=== PATIENT | male | born 1945 | race Caucasian/White ===

== ENCOUNTER 2018-06-11 21:12 | Emergency (ER) | payer OTHER, MEDICARE ==
[2018-06-11 21:48] VITALS: BP 124/69
--- NOTE | 2018-06-11 22:03 | EDM.PDOC ---
ED HPI GENERAL MEDICAL PROBLEM - General Chief Complaint: Gastrointestinal Problem Stated Complaint: VOMITING BLOOD Time Seen by Provider: 06/11/18 21:45 Source of Information: Reports: Patient, Family History Limitations: Reports: No Limitations - History of Present Illness INITIAL COMMENTS - FREE TEXT/NARRATIVE: This patient presents to the ED for evaluation of bleeding. He states he felt like he had a piece of food caught in his throat and coughed up a blood clot approximately the size of a quarter with some additional rashad blood. He had no nausea or vomiting with this. He has had no other episodes. He is currently taking ASA and Plavix and has recently been using naproxen daily since his right knee was replaced 2 months ago. He denies any blood in his stools, bleeding from his gums, other concerns or complaints. Onset: Today Onset Date: 06/11/18 Onset Time: 20:00 Improves with: Reports: None Worsens with: Reports: None Associated Symptoms: Reports: No Other Symptoms. Denies: Chest Pain - Related Data Allergies Allergy/AdvReac Type Severity Reaction Status Date / Time Sulfa (Sulfonamide Allergy Rash Verified 06/11/18 21:42 Antibiotics) zolpidem tartrate Allergy Change Verified 06/11/18 21:42 [From Melonieien] Mental Status Home Meds: Home Meds Acetaminophen/Codeine [Tylenol with Codeine No.3 300MG/30MG] 300 mg PO ASDIRECTED PRN 12/19/13 [History] Aspirin [Thom Chewable Aspirin] 81 mg CHEW DAILY 12/19/13 [History] Metoprolol Succinate 12.5 mg PO BEDTIME 12/19/13 [History] Multivitamin [Multivitamins] 1 tab PO DAILY 12/19/13 [History] [place]-3 Fatty Acids [Fish Oil] 1,000 mg PO BID 12/19/13 [History] Pantoprazole [Protonix] 40 mg PO BIDMEALS 12/19/13 [History] Sertraline [Zoloft] 150 mg PO DAILY 12/19/13 [History] Sucralfate [Carafate] 1 gm PO QIDACANDBED 12/19/13 [History] amLODIPine [Norvasc] 5 mg PO BEDTIME 12/19/13 [History] traZODone 100 mg PO BEDTIME PRN 12/19/13 [History] Cholecalciferol (Vitamin D3) [Vitamin D-3] 2,000 unit PO DAILY 12/20/14 [History ] Cyclobenzaprine [Flexeril] 10 mg PO BID PRN 12/20/14 [History] Hydrochlorothiazide 12.5 mg PO DAILY 12/20/14 [History] Isosorbide Mononitrate [Isosorbide Mononitrate ER] 15 mg PO DAILY 12/20/14 [ History] Memantine HCl [Namenda] 5 mg PO BID 12/20/14 [History] Nitroglycerin [Nitrostat] 0.4 mg SL ASDIRECTED PRN 12/20/14 [History] Vitamin E 100 units PO DAILY 12/20/14 [History] atorvaSTATin Calcium [Atorvastatin Calcium] 80 mg PO QPM 12/20/14 [History] Past Medical History HEENT History: Reports: Cataract, Hard of Hearing, Other (See Below) Other HEENT History: left ear pain inside, hx cararact surgery Cardiovascular History: Reports: Angina, CAD, PTCA, Stents Respiratory History: Reports: Pulmonary Fibrosis Other Respiratory History: asbestos lungs - scraped/removed fluid Gastrointestinal History: Reports: Pancreatitis Musculoskeletal History: Reports: Other (See Below) Other Musculoskeletal History: neck/back/knee/hip pain Psychiatric History: Reports: Depression - Infectious Disease History Infectious Disease History: Reports: Chicken Pox, Measles, Mumps, Rubella, Other (See Below) Other Infectious Disease History: encephalitis - Past Surgical History HEENT Surgical History: Reports: Cataract Surgery Social & Family History - Family History Cardiac: Reports: CAD, [place] Endocrine/Metabolic: Reports: Diabetes, type II Oncologic: Reports: Lymphoma ED ROS GENERAL - Review of Systems Review Of Systems: See Below Constitutional: Denies: Weakness, Fatigue HEENT: Denies: Nosebleed Respiratory: Denies: Hemoptysis Cardiovascular: Denies: Lightheadedness, Palpitations, Syncope GI/Abdominal: Denies: Abdominal Pain, Anorexia, Black Stool, Bloody Stool, Diarrhea, Decreased Appetite : Reports: Pain (epigastric). Denies: Hematuria Musculoskeletal: Reports: No Symptoms Skin: Reports: No Symptoms Neurological: Reports: No Symptoms Psychiatric: Reports: No Symptoms Hematologic/Lymphatic: Denies: Easy Bleeding, Easy Bruising ED EXAM, GI/ABD - Physical Exam Exam: See Below Exam Limited By: No Limitations General Appearance: Alert, WD/WN, No Apparent Distress Eyes: Bilateral: Normal Appearance Ears: Normal External Exam Nose: Normal Inspection Throat/Mouth: Normal Inspection, Normal Gums, Normal Oropharynx, Normal Voice, No Airway Compromise, Other (no active bleeding noted; no evidence of blood in mouth). No: Dysphagia Neck: Normal Inspection, Supple, Non-Tender, Full Range of Motion Respiratory/Chest: No Respiratory Distress, Normal Breath Sounds Cardiovascular: Regular Rate, Rhythm GI/Abdominal Exam: Soft, Non-Tender, No Organomegaly Extremities: Normal Inspection, Normal Range of Motion Neurological: Alert, Oriented Psychiatric: Normal Affect, Normal Mood Skin Exam: Warm, Dry, Intact Course - Vital Signs Last Recorded V/S: Last Vital Signs Temp 36.3 C 06/11/18 21:30 Pulse 81 06/11/18 21:30 Resp 18 06/11/18 21:30 BP 124/69 06/11/18 21:30 Pulse Ox 94 L 06/11/18 21:30 - Re-Assessments/Exams Free Text/Narrative Re-Assessment/Exam: 06/11/18 22:37 This patient presents with blood in the sputum. Differential Diagnosis considered included esophageal varices or bleeding, ulcerative process, GI bleed , etc. possibly related to medications and recents use of NSAIDs. Signs and symptoms at this time are consistent with hemoptysis. Patient denies pain with the exception of some epigastric discomfort intermittently. Patient is hemodynamically stable in the ED. Plan is home and holding Plavix for the next 2 days, adding prevacid daily, and follow up with PCP in the next week.He was instructed to return to ED if symptoms return and/or worsen. Return for fevers greater than 102, increasing pain, or other new symptoms develop. Questions were answered. Departure - Departure Time of Disposition: 22:20 Disposition: Home, Self-Care 01 Condition: Good Clinical Impression: Hemoptysis, Bleeding - Discharge Information *PRESCRIPTION DRUG MONITORING PROGRAM REVIEWED*: Not Applicable *COPY OF PRESCRIPTION DRUG MONITORING REPORT IN PATIENT LAURA: Not Applicable Instructions: Gastrointestinal Bleeding Forms: ED Department Discharge Additional Instructions: Stop Plavix for 2 days. Restart on Thursday. Continue with Omeprazole daily and your regular Protonix. Follow up with primary doctor next week. Avoid NSAIDs. Use Tylenol instead for pain. Talk to your primary doctor about getting a Heliobacter test to check for bleeding or upper endoscopy
== END 2018-06-11 22:00 | disposition home or self-care (01) ==
LOC: LB.ED 21:12
DX: R04.2 Hemoptysis (principal); I25.10 Atherosclerotic heart disease of native coronary artery without angina pectoris; F32.9 Major depressive disorder, single episode, unspecified; Z79.899 Other long term (current) drug therapy; Z79.82 Long term (current) use of aspirin; Z88.2 Allergy status to sulfonamides; Z88.8 Allergy status to other drugs, medicaments and biological substances
CPT/HCPCS: 99282; 99283

== ENCOUNTER 2018-06-13 13:41 | Emergency (ER) | payer OTHER, MEDICARE ==
[2018-06-13 13:54] VITALS: BP 138/81
--- NOTE | 2018-06-13 14:08 | EDM.PDOC ---
ED HPI GENERAL MEDICAL PROBLEM - General Chief Complaint: Gastrointestinal Problem Stated Complaint: bloody stool Time Seen by Provider: 06/13/18 14:00 Source of Information: Reports: Patient, Family History Limitations: Reports: No Limitations - History of Present Illness INITIAL COMMENTS - FREE TEXT/NARRATIVE: This patient presents to the ED for evaluation of bloody stools. He was seen 48 hours ago after one episode of hematemesis and was self-limited. He was instructed to hold his Plavix for 2 days and follow up with this PCP. He states he had a very good day yesterday with no further episodes. Today he woke feeling weak and dizzy and had an episode at home after which he needed assistance getting up from the floor. He states he did not pass out but went to the floor assisted because he was too weak and dizzy to continue. He has had some abdominal pain today and has noted rashad bleeding with stools. On arrival to the ED he is pale, diaphoretic, weak, and hypoxic. Onset: Today Onset Date: 06/13/18 Onset Time: 08:00 Duration: Getting Worse Improves with: Reports: None Worsens with: Reports: Movement Associated Symptoms: Reports: Diaphoresis, Loss of Appetite, Nausea/Vomiting, Shortness of Breath, Weakness - Related Data Allergies Allergy/AdvReac Type Severity Reaction Status Date / Time Sulfa (Sulfonamide Allergy Rash Verified 06/11/18 21:42 Antibiotics) zolpidem tartrate Allergy Change Verified 06/11/18 21:42 [From Haritha] Mental Status Home Meds: Home Meds Acetaminophen/Codeine [Tylenol with Codeine No.3 300MG/30MG] 300 mg PO ASDIRECTED PRN 12/19/13 [History] Aspirin [Thom Chewable Aspirin] 81 mg CHEW DAILY 12/19/13 [History] Metoprolol Succinate 12.5 mg PO BEDTIME 12/19/13 [History] Multivitamin [Multivitamins] 1 tab PO DAILY 12/19/13 [History] [place]-3 Fatty Acids [Fish Oil] 1,000 mg PO BID 12/19/13 [History] Pantoprazole [Protonix] 40 mg PO BIDMEALS 12/19/13 [History] Sertraline [Zoloft] 150 mg PO DAILY 12/19/13 [History] Sucralfate [Carafate] 1 gm PO QIDACANDBED 12/19/13 [History] amLODIPine [Norvasc] 5 mg PO BEDTIME 12/19/13 [History] traZODone 100 mg PO BEDTIME PRN 12/19/13 [History] Cholecalciferol (Vitamin D3) [Vitamin D-3] 2,000 unit PO DAILY 12/20/14 [History ] Cyclobenzaprine [Flexeril] 10 mg PO BID PRN 12/20/14 [History] Hydrochlorothiazide 12.5 mg PO DAILY 12/20/14 [History] Isosorbide Mononitrate [Isosorbide Mononitrate ER] 15 mg PO DAILY 12/20/14 [ History] Memantine HCl [Namenda] 5 mg PO BID 12/20/14 [History] Nitroglycerin [Nitrostat] 0.4 mg SL ASDIRECTED PRN 12/20/14 [History] Vitamin E 100 units PO DAILY 12/20/14 [History] atorvaSTATin Calcium [Atorvastatin Calcium] 80 mg PO QPM 12/20/14 [History] Past Medical History HEENT History: Reports: Cataract, Hard of Hearing, Other (See Below) Other HEENT History: left ear pain inside, hx cararact surgery Cardiovascular History: Reports: Angina, CAD, PTCA, Stents Respiratory History: Reports: Pulmonary Fibrosis Other Respiratory History: asbestos lungs - scraped/removed fluid Gastrointestinal History: Reports: Pancreatitis Musculoskeletal History: Reports: Other (See Below) Other Musculoskeletal History: neck/back/knee/hip pain Psychiatric History: Reports: Depression - Infectious Disease History Infectious Disease History: Reports: Chicken Pox, Measles, Mumps, Rubella, Other (See Below) Other Infectious Disease History: encephalitis - Past Surgical History HEENT Surgical History: Reports: Cataract Surgery Social & Family History - Family History Family Medical History: Noncontributory Cardiac: Reports: CAD, [place] Endocrine/Metabolic: Reports: Diabetes, type II Oncologic: Reports: Lymphoma ED ROS GENERAL - Review of Systems Review Of Systems: See Below Constitutional: Reports: Diaphoresis, Decreased Appetite. Denies: Fever HEENT: Reports: No Symptoms Respiratory: Denies: Shortness of Breath, Hemoptysis Cardiovascular: Reports: Lightheadedness. Denies: Chest Pain, Syncope Endocrine: Reports: No Symptoms GI/Abdominal: Reports: Abdominal Pain, Bloody Stool, Decreased Appetite. Denies : Nausea, Vomiting : Reports: No Symptoms Musculoskeletal: Reports: No Symptoms Skin: Reports: No Symptoms Neurological: Reports: No Symptoms Psychiatric: Reports: No Symptoms ED EXAM, GI/ABD - Physical Exam Exam: See Below Exam Limited By: No Limitations General Appearance: Alert, WD/WN, No Apparent Distress Eyes: Bilateral: Normal Appearance Ears: Normal External Exam Nose: Normal Inspection Throat/Mouth: Normal Inspection Head: Atraumatic, Normocephalic Neck: Normal Inspection, Supple, Non-Tender, Full Range of Motion Respiratory/Chest: No Respiratory Distress, Lungs Clear, Normal Breath Sounds, No Accessory Muscle Use Cardiovascular: Regular Rate, Rhythm GI/Abdominal Exam: Soft, Non-Tender, No Organomegaly, No Distention, Abnormal Bowel Sounds (hypoactive bowel sound). No: Hepatomegaly, Splenomegaly Rectal (Males) Exam: Bloody Stool Extremities: Normal Range of Motion, Non-Tender, No Pedal Edema, Normal Capillary Refill Neurological: Alert, Oriented Psychiatric: Normal Affect, Normal Mood Skin Exam: Warm, Dry Course - Vital Signs Last Recorded V/S: Last Vital Signs Temp 36.7 C 06/13/18 13:44 Pulse 88 06/13/18 13:44 Resp 16 06/13/18 13:44 BP 138/81 06/13/18 13:44 Pulse Ox 100 06/13/18 13:44 - Orders/Labs/Meds Orders: Active Orders 24 hr Category Date Time Status EKG Documentation Completion [RC] ASDIRECTED Care 06/13/18 14:56 Ordered Sodium Chloride 0.9% [Normal Saline] 1,000 ml Med 06/13/18 14:15 Ordered IV ASDIRECTED Sodium Chloride 0.9% [Saline Flush] Med 06/13/18 14:09 Ordered 10 ml FLUSH ASDIRECTED PRN Saline Lock Insert [OM.PC] Stat Oth 06/13/18 14:09 Ordered EKG 12 Lead [EK] Stat Ther 06/13/18 14:55 Ordered Medication Orders Sodium Chloride (Normal Saline) 1,000 mls @ 1,000 mls/hr IV ASDIRECTED CAROLYNN Last Admin: 06/13/18 14:20 Dose: 1,000 mls/hr Sodium Chloride (Saline Flush) 10 ml FLUSH ASDIRECTED PRN PRN Reason: Keep Vein Open Labs: Laboratory Tests 06/13/18 06/13/18 Range/Units 14:15 14:15 WBC 10.4 D (4.0-11.0) K/uL RBC 3.41 L (4.50-6.50) M/uL Hgb 10.4 L D (13.0-18.0) g/dL Hct 31.2 L D (40.0-54.0) % MCV 92 (76-96) fL MCH 30.5 (27.0-32.0) pg MCHC 33.3 (31.0-35.0) g/dL RDW 12.6 (11.0-16.0) % Plt Count 265 D (150-400) K/uL MPV 9.6 (6.0-10.0) fL Neut % (Auto) 77.0 H (45.0-70.0) % Lymph % (Auto) 15.7 L (20.0-40.0) % Rice % (Auto) 6.4 (3.0-10.0) % Eos % (Auto) 0.3 L (1.0-5.0) % Baso % (Auto) 0.6 H (0.0-0.5) % Neut # (Auto) 8.00 H (2.00-7.50) K/uL Lymph # (Auto) 1.63 (1.50-4.00) K/uL Rice # (Auto) 0.67 (0.20-0.80) K/uL Eos # (Auto) 0.03 L (0.04-0.40) K/uL Baso # (Auto) 0.06 (0.02-0.10) K/uL Sodium 139 (136-145) mmol/L Potassium 4.1 (3.5-5.1) mmol/L Chloride 102 (98-107) mmol/L Carbon Dioxide 29.2 (21.0-32.0) mmol/L Anion Gap 11.9 (5.0-15.0) mmol/L BUN 40 H D (8-26) mg/dL Creatinine 0.89 (0.70-1.30) mg/dL Est Cr Clr Drug Dosing 88.51 mL/min Estimated GFR (MDRD) > 60 (>60) MLS/MIN BUN/Creatinine Ratio 44.9 H (6-25) Glucose 127 H D (74-100) mg/dL Calcium 8.1 L (8.5-10.1) mg/dL Total Bilirubin 0.3 D (0.0-1.0) mg/dL AST 16 (15-37) U/L ALT 17 (12-78) U/L Alkaline Phosphatase 91 (46-116) U/L Total Protein 6.4 (6.4-8.2) g/dL Albumin 3.3 L (3.4-5.0) g/dL Globulin 3.1 (2.2-4.2) g/dL Albumin/Globulin Ratio 1.1 (0.8-2.0) Meds: Medications Generic Name Dose Route Start Last Admin Trade Name Freq PRN Reason Stop Dose Admin Sodium Chloride 1,000 mls @ 1,000 mls/hr 06/13/18 14:15 06/13/18 14:20 Normal Saline IV 1,000 mls/hr ASDIRECTED CAROLYNN Administration Sodium Chloride 10 ml 06/13/18 14:09 Saline Flush FLUSH ASDIRECTED PRN Keep Vein Open - Re-Assessments/Exams Free Text/Narrative Re-Assessment/Exam: 06/13/18 15:09 This patient presents for evaluation of bloody stools, dizziness, and weakness. The differential diagnosis of rectal bleeding is broad and includes such etiologies as colitis (inflammatory, infectious, ischemic), GI bleed (upper vs lower), bacterial infection of the large intestine (salmonella, shigella, campylobacter, e coli, etc), diverticular bleed, parasite, amebiasis, hemorrhoid , benign diarrhea with fissure/hemorrhoid, etc. There are no signs of worrisome intra-abdominal pathologies detected during the visit today; however, the patient did present with hypoxia and other symptoms. Because he was symptomatic , a hospital admission is indicated. I contacted [facility] and spoke with Dr. King in the ED who did agree to accept this patient in transfer for definitive diagnosis. Arrangements were made for the patient to be transferred to [place] via EMS. The patient was stable at the time of transfer. Departure - Departure Time of Disposition: 15:30 Disposition: Home, Self-Care 01 Condition: Fair Clinical Impression: Rectal bleeding, Hypoxia - Discharge Information *PRESCRIPTION DRUG MONITORING PROGRAM REVIEWED*: No *COPY OF PRESCRIPTION DRUG MONITORING REPORT IN PATIENT LAURA: No Forms: ED Department Discharge - My Orders Last 24 Hours: My Active Orders 06/13/18 14:09 Sodium Chloride 0.9% [Saline Flush] 10 ml FLUSH ASDIRECTED PRN Saline Lock Insert [OM.PC] Stat 06/13/18 14:15 Sodium Chloride 0.9% [Normal Saline] 1,000 ml IV ASDIRECTED 06/13/18 14:55 EKG 12 Lead [EK] Stat 06/13/18 14:56 EKG Documentation Completion [RC] ASDIRECTED - Assessment/Plan Last 24 Hours: My Active Orders 06/13/18 14:09 Sodium Chloride 0.9% [Saline Flush] 10 ml FLUSH ASDIRECTED PRN Saline Lock Insert [OM.PC] Stat 06/13/18 14:15 Sodium Chloride 0.9% [Normal Saline] 1,000 ml IV ASDIRECTED 06/13/18 14:55 EKG 12 Lead [EK] Stat 06/13/18 14:56 EKG Documentation Completion [RC] ASDIRECTED
[2018-06-13] MEDS ORDERED: Sodium Chloride 0.9% 10 ML Syringe FLUSH PRN (14:09)
[2018-06-13] MEDS ORDERED: Sodium Chloride 0.9% 1,000 ML IV SCH (14:15)
[2018-06-13] MEDS ORDERED: Morphine 10 MG/ML SDV IV ONE (15:11)
== END 2018-06-13 15:36 | disposition home or self-care (01) ==
LOC: LB.ED 13:41
DX: K62.5 Hemorrhage of anus and rectum (principal); R09.02 Hypoxemia; Z88.2 Allergy status to sulfonamides; Z88.8 Allergy status to other drugs, medicaments and biological substances; Z79.899 Other long term (current) drug therapy; Z79.82 Long term (current) use of aspirin; F32.9 Major depressive disorder, single episode, unspecified
CPT/HCPCS: 36415; 80053; 83605; 85025; 93005; 96361; 96374; 99284-25; 99285; A0425; A0429; J2270; J7030

== ENCOUNTER 2019-03-01 12:10 | Inpatient (IN) | payer OTHER, MEDICARE ==
--- NOTE | 2019-03-01 13:02 | EDM.PDOC ---
ED HPI GENERAL MEDICAL PROBLEM - General Chief Complaint: General Stated Complaint: cough Time Seen by Provider: 03/01/19 12:10 Source of Information: Reports: Patient, Family History Limitations: Reports: No Limitations - History of Present Illness INITIAL COMMENTS - FREE TEXT/NARRATIVE: This patient presents to the ED for evaluation of cough. He has been ill for the past week with URI symptoms and was seen for his cough yesterday at an urgent care center. He was given prescriptions for doxycycline and Tessalon. He presents today because the cough is worse and he is needing increased amounts of oxygen. He states he typically only uses oxygen at night but has needed it during the day as well. His appetite is decreased; denies vomiting or diarrhea. Onset: Gradual Onset Date: 02/22/19 Duration: Getting Worse Severity: Moderate Associated Symptoms: Reports: Headaches, Loss of Appetite, Shortness of Breath, Weakness. Denies: Fever/Chills, Nausea/Vomiting - Related Data Allergies Allergy/AdvReac Type Severity Reaction Status Date / Time Sulfa (Sulfonamide Allergy Rash Verified 06/11/18 21:42 Antibiotics) zolpidem tartrate Allergy Change Verified 06/11/18 21:42 [From Haritha] Mental Status Home Meds: Home Meds Acetaminophen/Codeine [Tylenol with Codeine No.3 300MG/30MG] 300 mg PO ASDIRECTED PRN 12/19/13 [History] Aspirin [Thom Chewable Aspirin] 81 mg CHEW DAILY 12/19/13 [History] Metoprolol Succinate 12.5 mg PO BEDTIME 12/19/13 [History] Multivitamin [Multivitamins] 1 tab PO DAILY 12/19/13 [History] [place]-3 Fatty Acids [Fish Oil] 1,000 mg PO BID 12/19/13 [History] Pantoprazole [Protonix] 40 mg PO BIDMEALS 12/19/13 [History] Sertraline [Zoloft] 150 mg PO DAILY 12/19/13 [History] Sucralfate [Carafate] 1 gm PO QIDACANDBED 12/19/13 [History] amLODIPine [Norvasc] 5 mg PO BEDTIME 12/19/13 [History] traZODone 100 mg PO BEDTIME PRN 12/19/13 [History] Cholecalciferol (Vitamin D3) [Vitamin D-3] 2,000 unit PO DAILY 12/20/14 [History ] Cyclobenzaprine [Flexeril] 10 mg PO BID PRN 12/20/14 [History] Hydrochlorothiazide 12.5 mg PO DAILY 12/20/14 [History] Isosorbide Mononitrate [Isosorbide Mononitrate ER] 15 mg PO DAILY 12/20/14 [ History] Memantine HCl [Namenda] 5 mg PO BID 12/20/14 [History] Nitroglycerin [Nitrostat] 0.4 mg SL ASDIRECTED PRN 12/20/14 [History] Vitamin E 100 units PO DAILY 12/20/14 [History] atorvaSTATin Calcium [Atorvastatin Calcium] 80 mg PO QPM 12/20/14 [History] Past Medical History HEENT History: Reports: Cataract, Hard of Hearing, Other (See Below) Other HEENT History: left ear pain inside, hx cararact surgery Cardiovascular History: Reports: Angina, CAD, PTCA, Stents Respiratory History: Reports: Pulmonary Fibrosis Other Respiratory History: asbestos lungs - scraped/removed fluid Gastrointestinal History: Reports: Pancreatitis Musculoskeletal History: Reports: Other (See Below) Other Musculoskeletal History: neck/back/knee/hip pain Psychiatric History: Reports: Depression - Infectious Disease History Infectious Disease History: Reports: Chicken Pox, Measles, Mumps, Rubella, Other (See Below) Other Infectious Disease History: encephalitis - Past Surgical History HEENT Surgical History: Reports: Cataract Surgery Social & Family History - Family History Family Medical History: Noncontributory Cardiac: Reports: CAD, [place] Endocrine/Metabolic: Reports: Diabetes, type II Oncologic: Reports: Lymphoma ED ROS GENERAL - Review of Systems Review Of Systems: See Below Constitutional: Reports: Weakness, Decreased Appetite. Denies: Fever HEENT: Reports: No Symptoms Respiratory: Reports: Shortness of Breath, Wheezing, Cough, Sputum Cardiovascular: Reports: Dyspnea on Exertion, Orthopnea. Denies: Chest Pain GI/Abdominal: Reports: No Symptoms Musculoskeletal: Reports: No Symptoms Skin: Reports: No Symptoms Neurological: Reports: No Symptoms ED EXAM, GENERAL - Physical Exam Exam: See Below Exam Limited By: No Limitations General Appearance: Alert, WD/WN, Moderate Distress Eye Exam: Bilateral Eye: PERRL Ears: Normal External Exam Nose: Normal Inspection Throat/Mouth: Normal Inspection Head: Atraumatic, Normocephalic Neck: Normal Inspection, Supple, Non-Tender, Full Range of Motion Respiratory/Chest: Respiratory Distress, Decreased Breath Sounds, Crackles, Rales, Wheezing, Accessory Muscle Use Cardiovascular: Regular Rate, Rhythm Extremities: Normal Inspection, Normal Range of Motion Neurological: Alert, Oriented Psychiatric: Normal Affect Skin Exam: Warm, Dry, Intact Course - Vital Signs Last Recorded V/S: Last Vital Signs Temp 36.8 C 03/01/19 12:18 Pulse 89 03/01/19 12:18 Resp 18 03/01/19 12:18 BP 156/85 H 03/01/19 12:18 Pulse Ox 96 03/01/19 12:18 - Orders/Labs/Meds Orders: Active Orders 24 hr Category Date Time Status Chest 2V [CR] Stat Exams 03/01/19 12:47 Ordered - Re-Assessments/Exams Free Text/Narrative Re-Assessment/Exam: This patient presents for evaluation of cough. History, physical exam and imaging studies are consistent with pneumonia. The patient is having increased work of breathing and oxygen requirements. For these reasons, he will be admitted to the inpatient unit on observation status for supplemental oxygen and IV antibiotics. 03/01/19 13:05 Departure - Departure Time of Disposition: 13:06 Disposition: Refer to Observation Condition: Fair Clinical Impression: Pneumonia - Discharge Information *PRESCRIPTION DRUG MONITORING PROGRAM REVIEWED*: Not Applicable Referrals: PCP,None [Primary Care Provider] - Sepsis Event Note - Evaluation Sepsis Screening Result: No Definite Risk - Focused Exam Vital Signs: Vital Signs Temp Pulse Resp BP Pulse Ox 03/01/19 12:18 36.8 C 89 18 156/85 H 96 Date Exam was Performed: 03/01/19 Time Exam was Performed: 12:51 - My Orders Last 24 Hours: My Active Orders 03/01/19 12:47 Chest 2V [CR] Stat - Assessment/Plan Last 24 Hours: My Active Orders 03/01/19 12:47 Chest 2V [CR] Stat
[2019-03-01] MEDS ORDERED: Ondansetron 4 MG/2 ML SDV IV PRN (13:07)
[2019-03-01] MEDS ORDERED: Sodium Chloride 0.9% 10 ML Syringe FLUSH PRN (13:10)
--- NOTE | 2019-03-01 13:40 | PCM.HP.2 ---
H&P History of Present Illness - General Date of Service: 03/01/19 Admit Problem/Dx: Admission Diagnosis/Problem Admission Diagnosis/Problem Pneumonia Source of Information: Patient, Family History Limitations: Reports: No Limitations - History of Present Illness Initial Comments - Free Text/Narative: This patient presents to the ED for evaluation of cough. Refer to ED record. Onset of Symptoms: Reports: Gradual Symptom Onset Date: 02/22/19 Duration of Symptoms: Reports: Getting Worse Location: Reports: Chest Severity: Moderate Improves with: Reports: None Worsens with: Reports: Breathing, Movement Associated Symptoms: Reports: Chest Pain, Headaches, Loss of Appetite, Shortness of Breath, Weakness. Denies: Fever/Chills, Nausea/Vomiting - Related Data Allergies/Adverse Reactions: Allergies Allergy/AdvReac Type Severity Reaction Status Date / Time Sulfa (Sulfonamide Allergy Rash Verified 06/11/18 21:42 Antibiotics) zolpidem tartrate Allergy Change Verified 06/11/18 21:42 [From Ambien] Mental Status Home Medications: Home Meds Acetaminophen/Codeine [Tylenol with Codeine No.3 300MG/30MG] 300 mg PO ASDIRECTED PRN 12/19/13 [History] Aspirin [Thom Chewable Aspirin] 81 mg CHEW DAILY 12/19/13 [History] Metoprolol Succinate 12.5 mg PO BEDTIME 12/19/13 [History] Multivitamin [Multivitamins] 1 tab PO DAILY 12/19/13 [History] [place]-3 Fatty Acids [Fish Oil] 1,000 mg PO BID 12/19/13 [History] Pantoprazole [Protonix] 40 mg PO BIDMEALS 12/19/13 [History] Sertraline [Zoloft] 150 mg PO DAILY 12/19/13 [History] Sucralfate [Carafate] 1 gm PO QIDACANDBED 12/19/13 [History] amLODIPine [Norvasc] 5 mg PO BEDTIME 12/19/13 [History] traZODone 100 mg PO BEDTIME PRN 12/19/13 [History] Cholecalciferol (Vitamin D3) [Vitamin D-3] 2,000 unit PO DAILY 12/20/14 [History ] Cyclobenzaprine [Flexeril] 10 mg PO BID PRN 12/20/14 [History] Hydrochlorothiazide 12.5 mg PO DAILY 12/20/14 [History] Isosorbide Mononitrate [Isosorbide Mononitrate ER] 15 mg PO DAILY 12/20/14 [ History] Memantine HCl [Namenda] 5 mg PO BID 12/20/14 [History] Nitroglycerin [Nitrostat] 0.4 mg SL ASDIRECTED PRN 12/20/14 [History] Vitamin E 100 units PO DAILY 12/20/14 [History] atorvaSTATin Calcium [Atorvastatin Calcium] 80 mg PO QPM 12/20/14 [History] Past Medical History HEENT History: Reports: Cataract, Hard of Hearing, Other (See Below) Other HEENT History: left ear pain inside, hx cararact surgery Cardiovascular History: Reports: Angina, CAD, PTCA, Stents Respiratory History: Reports: Pulmonary Fibrosis Other Respiratory History: asbestos lungs - scraped/removed fluid Gastrointestinal History: Reports: Pancreatitis Musculoskeletal History: Reports: Other (See Below) Other Musculoskeletal History: neck/back/knee/hip pain Psychiatric History: Reports: Depression - Infectious Disease History Infectious Disease History: Reports: Chicken Pox, Measles, Mumps, Rubella, Other (See Below) Other Infectious Disease History: encephalitis - Past Surgical History HEENT Surgical History: Reports: Cataract Surgery Social & Family History - Family History Family Medical History: Noncontributory Cardiac: Reports: CAD, [place] Endocrine/Metabolic: Reports: Diabetes, type II Oncologic: Reports: Lymphoma - Tobacco Use Smoking Status *Q: Former Smoker Used Tobacco, but Quit: Yes Month/Year Tobacco Last Used: 1984 Second Hand Smoke Exposure: No - Caffeine Use Caffeine Use: Reports: Coffee, Tea - Recreational Drug Use Recreational Drug Use: No H&P Review of Systems - Review of Systems: Review Of Systems: See Below General: Reports: Weakness, Decreased Appetite. Denies: Fever HEENT: Reports: Headaches, Rhinitis. Denies: Ear Pain, Eye Pain, Sore Throat Pulmonary: Reports: Shortness of Breath, Wheezing, Cough, Sputum Cardiovascular: Reports: Dyspnea on Exertion, Orthopnea. Denies: Chest Pain, Palpitations Gastrointestinal: Reports: Decreased Appetite. Denies: Abdominal Pain, Diarrhea , Nausea, Vomiting Musculoskeletal: Reports: No Symptoms Skin: Reports: No Symptoms Neurological: Reports: No Symptoms Exam - Exam Exam: See Below - Vital Signs Vital Signs: Last Vital Signs Temp 36.8 C 03/01/19 12:18 Pulse 89 12/31/19 12:18 Resp 18 03/01/19 12:18 BP 156/85 H 03/01/19 12:18 Pulse Ox 96 03/01/19 12:18 Weight: 90.083 kg - Exam Quality Assessment: Supplemental Oxygen General: Alert, Oriented, Cooperative, Moderate Distress HEENT: PERRLA, Conjunctiva Clear, EOMI, Hearing Intact, Mucosa Moist & [place], Nares Patent, Normal Nasal Septum, Posterior Pharynx Clear, Pupils Equal, Pupils Reactive, TMs Clear Neck: Supple, Trachea Midline Lungs: Decreased Breath Sounds, Rales, Rhonchi, Wheezing, Other (Breath sounds decreased bilateral bases with intermittent rales and expiratory wheezes) GI/Abdominal Exam: Normal Bowel Sounds, Soft, Non-Tender, No Distention Back Exam: Normal Inspection Extremities: Normal Inspection Skin: Warm, Dry, Intact Neuro Extensive - Mental Status: Alert, Oriented x3, Normal Mood/Affect Sepsis Event Note - Evaluation Sepsis Screening Result: No Definite Risk - Focused Exam Vital Signs: Vital Signs Temp Pulse Resp BP Pulse Ox 03/01/19 12:18 36.8 C 89 18 156/85 H 96 Date Exam was Performed: 03/01/19 Time Exam was Performed: 13:34 - Problem List (1) Pneumonia SNOMED Code(s): 379690350 ICD Code: J18.9 - PNEUMONIA, UNSPECIFIED ORGANISM Status: Acute Priority : Medium Current Visit: Yes Qualifiers: Pneumonia type: due to unspecified organism Laterality: unspecified laterality Lung location: unspecified part of lung Qualified Code(s): J18.9 - Pneumonia, unspecified organism Problem List Initiated/Reviewed/Updated: No Orders Last 24hrs: Active Orders 24 hr Category Date Time Status Patient Status [ADT] Routine ADT 03/01/19 13:07 Active Oxygen Therapy [RC] PRN Care 03/01/19 13:07 Active Pulse Oximetry [RC] CONTINUOUS Care 03/01/19 13:08 Active RT Aerosol Therapy [RC] ASDIRECTED Care 03/01/19 13:09 Active VTE/DVT Education [RC] DAILY Care 03/01/19 13:07 Active Vital Signs [RC] Q4H Care 03/01/19 13:07 Active Chest 2V [CR] Stat Exams 03/01/19 12:47 Taken Acetaminophen [Tylenol] Med 03/01/19 13:07 Active 650 mg PO Q4H PRN Albuterol/Ipratropium [DuoNeb 3.0-0.5 MG/3 ML] Med 03/01/19 13:07 Active 3 ml NEB QID PRN Levofloxacin/Dextrose 5%-Water [Levaquin in D5W 750 MG/ Med 03/01/19 13:45 Ordered 150 ML] 750 mg Premix Bag 1 bag IV Q24H Ondansetron [Zofran] Med 03/01/19 13:07 Active 4 mg IV Q4H PRN Sodium Chloride 0.9% [Saline Flush] Med 03/01/19 13:10 Active 10 ml FLUSH ASDIRECTED PRN Saline Lock Insert [OM.PC] Routine Oth 03/01/19 13:10 Ordered Resuscitation Status Routine Resus Stat 03/01/19 13:07 Ordered Medication Orders Acetaminophen (Tylenol) 650 mg PO Q4H PRN PRN Reason: Pain (Mild 1-3)/fever Albuterol/Ipratropium (Duoneb 3.0-0.5 Mg/3 Ml) 3 ml NEB QID PRN PRN Reason: Shortness Of Breath/wheezing Levofloxacin/Dextrose 750 mg/ (Premix) 150 mls @ 100 mls/hr IV Q24H [facility] Ondansetron HCl (Zofran) 4 mg IV Q4H PRN PRN Reason: Nausea/Vomiting Sodium Chloride (Saline Flush) 10 ml FLUSH ASDIRECTED PRN PRN Reason: Keep Vein Open - Mortality Measure Prognosis:: Good
[2019-03-01] MEDS ORDERED: Levofloxacin/Dextrose 5%-Water 150 ML IV ONE (14:00)
[2019-03-01] MEDS: Acetaminophen 325 MG Tab PO PRN ×2 (14:05→18:38)
[2019-03-01] MEDS: Levofloxacin/Dextrose 5%-Water 750 MG in Premix Bag 1 BAG IV SCH (14:10)
[2019-03-01] MEDS ORDERED: Lidocaine 5% Oint 35.44 GM Tube TOP PRN ×2 (16:50→16:54)
[2019-03-01] MEDS ORDERED: GUAIFENESIN PO PRN (16:54)
[2019-03-01] MEDS ORDERED: Lidocaine 5% 700 MG Patch TOP PRN (16:54)
[2019-03-01] MEDS ORDERED: Nitroglycerin 0.4 MG Tab.SL SL PRN (16:54)
[2019-03-01] MEDS ORDERED: Non-Formulary Medication 1 Each (Melatonin/Pyridoxine Hcl (B6) [Melatonin 3 Mg Tablet] 3 M PO PRN (16:54)
[2019-03-01] MEDS ORDERED: [UNRECOGNIZED DRUG - OTHER] PO PRN (16:54)
[2019-03-01] MEDS ORDERED: CODEINE PHOSPHATE PO PRN (16:54)
[2019-03-01] MEDS ORDERED: Albuterol/Ipratropium 3.0-0.5 MG/3 ML Neb Soln INH PRN (16:54)
[2019-03-01] MEDS ORDERED: traZODone 100 MG Tab PO PRN (16:54)
[2019-03-01] MEDS ORDERED: BENZONATATE 200 MG PO PRN (16:54)
[2019-03-01] MEDS: BENZONATATE 200 MG PO PRN (17:00)
[2019-03-01] MEDS: CODEINE PO PRN ×2 (18:16→22:51)
[2019-03-01] MEDS: GUAIFENESIN PO PRN ×2 (18:16→22:51)
[2019-03-01] MEDS: LORazepam 1 MG Tab PO PRN ×2 (18:39→22:51)
[2019-03-01] MEDS: SUCRALFATE 1 GM PO SCH (19:52)
[2019-03-01] MEDS: FATTY ACIDS PO SCH (19:53)
[2019-03-01] MEDS: OMEGA PO SCH (19:53)
[2019-03-01] MEDS ORDERED: amLODIPine 10 MG Tab PO SCH (20:00)
[2019-03-01] MEDS ORDERED: Sucralfate 1 GM Tab PO SCH (20:00)
[2019-03-01] MEDS ORDERED: atorvaSTATin 80 MG Tab PO SCH (20:00)
[2019-03-01] MEDS ORDERED: Morphine 2 MG/ML Syringe ONE (23:09)
[2019-03-01] MEDS: Nitroglycerin 0.4 MG Tab.SL SL PRN (23:18)
[2019-03-02] MEDS: LORazepam 1 MG Tab PO PRN ×3 (03:12→20:10)
[2019-03-02] MEDS: Nitroglycerin 0.4 MG Tab.SL SL PRN ×2 (03:16→06:39)
[2019-03-02] MEDS: CODEINE PO PRN ×3 (03:17→20:02)
[2019-03-02] MEDS: GUAIFENESIN PO PRN ×3 (03:17→20:02)
[2019-03-02] MEDS ORDERED: Morphine 2 MG/ML Syringe IVPUSH ONE (04:21)
[2019-03-02] MEDS ORDERED: Aspirin 81 MG Tab.Chew CHEW SCH (08:00)
[2019-03-02] MEDS ORDERED: Clopidogrel 75 MG Tab PO SCH (08:00)
[2019-03-02] MEDS ORDERED: Isosorbide Mononitrate 60 MG Tab.ER PO SCH (08:00)
[2019-03-02] MEDS ORDERED: Loratadine 10 MG Tab PO SCH (08:00)
[2019-03-02] MEDS ORDERED: Sertraline 100 MG Tab PO SCH (08:00)
[2019-03-02] MEDS ORDERED: Pantoprazole 40 MG Tab.CR PO SCH (08:00)
[2019-03-02] MEDS ORDERED: Hydrochlorothiazide 25 MG Tab PO SCH (08:00)
[2019-03-02] MEDS ORDERED: Metoprolol Succinate 25 MG Tab.ER PO SCH (08:00)
[2019-03-02] MEDS ORDERED: Memantine 10 MG Tab PO SCH (08:00)
[2019-03-02] MEDS: Acetaminophen 325 MG Tab PO PRN ×3 (08:38→22:54)
[2019-03-02] MEDS: BENZONATATE 200 MG PO PRN ×2 (08:38→16:26)
[2019-03-02] MEDS: SUCRALFATE 1 GM PO SCH ×2 (09:00→20:05)
[2019-03-02] MEDS: Albuterol/Ipratropium 3.0-0.5 MG/3 ML Neb Soln NEB PRN (09:08)
[2019-03-02] MEDS: FATTY ACIDS PO SCH ×2 (12:04→20:08)
[2019-03-02] MEDS: OMEGA PO SCH ×2 (12:04→20:08)
[2019-03-02] MEDS: ISOSORBIDE MONONITRATE 60 MG PO SCH (12:07)
--- NOTE | 2019-03-02 12:13 | PCM.PN ---
- General Info Date of Service: 03/02/19 Admission Dx/Problem (Free Text): Admission Diagnosis/Problem Admission Diagnosis/Problem Pneumonia Subjective Update: Patient sleeping soundly and groggy during exam. Functional Status: Reports: Pain Controlled - Review of Systems General: Reports: Appetite (remains decreased). Denies: Fever HEENT: Reports: Other (had epistaxis during the night) Pulmonary: Reports: Shortness of Breath, Cough, Sputum Cardiovascular: Reports: Dyspnea on Exertion, Orthopnea. Denies: Chest Pain Gastrointestinal: Denies: Abdominal Pain, Diarrhea, Nausea, Vomiting Musculoskeletal: Reports: No Symptoms Skin: Reports: No Symptoms Neurological: Reports: No Symptoms - Patient Data Vitals - Most Recent: Last Vital Signs Temp 37.3 C 03/02/19 08:00 Pulse 96 03/02/19 08:00 Resp 20 03/02/19 08:00 BP 167/101 H 03/02/19 08:00 Pulse Ox 95 03/02/19 08:00 Weight - Most Recent: 90.083 kg Lab Results Last 24 Hours: Laboratory Results - last 24 hr 03/01/19 03/01/19 Range/Units 15:32 16:00 WBC 12.4 H (4.0-11.0) K/uL RBC 4.17 L (4.50-6.50) M/uL Hgb 12.7 L D (13.0-18.0) g/dL Hct 37.9 L D (40.0-54.0) % MCV 91 (76-96) fL MCH 30.5 (27.0-32.0) pg MCHC 33.5 (31.0-35.0) g/dL RDW 13.0 (11.0-16.0) % Plt Count 231 (150-400) K/uL MPV 9.5 (6.0-10.0) fL Neut % (Auto) 80.0 H (45.0-70.0) % Lymph % (Auto) 8.8 L (20.0-40.0) % [place] % (Auto) 10.1 H (3.0-10.0) % Eos % (Auto) 0.8 L (1.0-5.0) % Baso % (Auto) 0.3 (0.0-0.5) % Neut # (Auto) 9.89 H (2.00-7.50) K/uL Lymph # (Auto) 1.09 L (1.50-4.00) K/uL [place] # (Auto) 1.25 H (0.20-0.80) K/uL Eos # (Auto) 0.10 (0.04-0.40) K/uL Baso # (Auto) 0.04 (0.02-0.10) K/uL Sodium 135 L (136-145) mmol/L Potassium 3.0 L D (3.5-5.1) mmol/L Chloride 95 L (98-107) mmol/L Carbon Dioxide 32.2 H (21.0-32.0) mmol/L Anion Gap 10.8 (5.0-15.0) mmol/L BUN 10 D (8-26) mg/dL Creatinine 0.75 (0.70-1.30) mg/dL Est Cr Clr Drug Dosing 103.51 mL/min Estimated GFR (MDRD) > 60 (>60) MLS/MIN BUN/Creatinine Ratio 13.3 (6-25) Glucose 117 H (74-100) mg/dL Calcium 9.0 (8.5-10.1) mg/dL Albert Results Last 24 Hours: Microbiology 03/01/19 15:00 MRSA Surveillance Culture - Final Nares, Left NO MRSA ISOLATED Med Orders - Current: Current Medications Acetaminophen (Tylenol) 650 mg PO Q4H PRN PRN Reason: Pain (Mild 1-3)/fever Last Admin: 03/02/19 08:38 Dose: 650 mg Albuterol/Ipratropium (Duoneb 3.0-0.5 Mg/3 Ml) 3 ml NEB QID PRN PRN Reason: Shortness Of Breath/wheezing Last Admin: 03/02/19 09:08 Dose: 3 ml Amlodipine Besylate (Norvasc) 10 mg PO BEDTIME [facility] Aspirin (Aspirin) 81 mg PO DAILY [facility] Atorvastatin Calcium (Lipitor) 80 mg PO BEDTIME CAROLYNN Last Admin: 03/01/19 19:55 Dose: 80 mg Cholecalciferol (Vitamin D3) 2,000 unit PO DAILY [facility] Clopidogrel Bisulfate (Plavix) 75 mg PO DAILY [facility] Guaifenesin/Codeine Phosphate (Robitussin Ac) 5 ml PO Q4H PRN PRN Reason: Cough Last Admin: 03/02/19 03:17 Dose: 5 ml Hydrochlorothiazide (Hydrochlorothiazide) 12.5 mg PO DAILY [facility] Levofloxacin/Dextrose 750 mg/ (Premix) 150 mls @ 100 mls/hr IV Q24H CAROLYNN Last Admin: 03/01/19 14:10 Dose: 100 mls/hr Isosorbide Mononitrate (Imdur) 60 mg PO DAILY [facility] Last Admin: 03/02/19 12:07 Dose: 60 mg Lidocaine (Lidoderm 5%) 1,400 mg TOP DAILY PRN PRN Reason: Pain Lidocaine HCl (Lidocaine 5%) gm TOP BID PRN PRN Reason: Pain Loratadine (Claritin) 10 mg PO DAILY [facility] Lorazepam (Ativan) 2 mg PO Q4H PRN PRN Reason: Anxiety Last Admin: 03/02/19 08:37 Dose: 2 mg Melatonin (Melatonin) 3 mg PO BEDTIME [facility] Memantine (Namenda) 10 mg PO BID [facility] Metoprolol Succinate (Toprol Xl) 25 mg PO BEDTIME [facility] Non-Formulary Medication (Multivitamin [Multivitamins]) 1 tab PO DAILY [facility] [place]-3 Fatty Acids (Fish Oil) 1,000 Mg Cap Own Med 0 mg PO BID [facility] Last Admin: 03/02/19 12:04 Dose: 1,000 mg Ondansetron HCl (Zofran) 4 mg IV Q4H PRN PRN Reason: Nausea/Vomiting Pantoprazole Sodium (Protonix) 40 mg PO DAILY [facility] Benzonatate 200 Mg (Caps Own Med) 0 each PO Q8H PRN PRN Reason: Cough Last Admin: 03/02/19 08:38 Dose: 200 each Sertraline HCl (Zoloft) 150 mg PO DAILY [facility] Sodium Chloride (Saline Flush) 10 ml FLUSH ASDIRECTED PRN PRN Reason: Keep Vein Open Sucralfate (Carafate) 1 gm PO BID [facility] Last Admin: 03/02/19 09:00 Dose: 1 gm Trazodone HCl (Trazodone) 100 mg PO BEDTIME PRN PRN Reason: Sleep Last Admin: 03/01/19 22:01 Dose: 100 mg Vitamin E (Vitamin E) 100 units PO DAILY [facility] Discontinued Medications Albuterol/Ipratropium (Duoneb 3.0-0.5 Mg/3 Ml) 3 ml INH QID PRN PRN Reason: Dyspnea Aspirin (Aspirin) 81 mg CHEW DAILY [facility] Clopidogrel Bisulfate (Plavix) 75 mg PO DAILY [facility] Hydrochlorothiazide (Hydrochlorothiazide) 12.5 mg PO DAILY [facility] Levofloxacin/Dextrose (Levaquin In D5w 750 Mg/150 Ml) Confirm Administered Dose 150 mls @ as directed IV .[employer]-MED ONE Stop: 03/01/19 14:01 Last Admin: 03/01/19 14:18 Dose: Not Given Lidocaine (Lidoderm 5%) mg TOP DAILY PRN PRN Reason: Pain Lidocaine HCl (Lidocaine 5%) 1 gm TOP ONETIME PRN PRN Reason: Pain Loratadine (Claritin) 10 mg PO DAILY [facility] Memantine (Namenda) 10 mg PO DAILY [facility] Morphine Sulfate (Morphine) Confirm Administered Dose 2 mg .ROUTE .[employer]-MED ONE Stop: 03/01/19 23:10 Last Admin: 03/01/19 23:27 Dose: 2 mg Morphine Sulfate (Morphine) 2 mg IVPUSH ONETIME ONE Stop: 03/02/19 04:22 Last Admin: 03/02/19 04:35 Dose: 2 mg Nitroglycerin (Nitrostat) 0.4 mg SL Q5M PRN PRN Reason: Chest Pain Last Admin: 03/02/19 06:39 Dose: 0.4 mg Nitroglycerin (Nitrostat) 0.4 mg SL ASDIRECTED PRN PRN Reason: Chest Pain Non-Formulary Medication (Guaifenesin/Codeine Phosphate [Codeine-Guaifen 10-100 Mg/5 Ml]) 5 ml PO Q4HR PRN PRN Reason: Cough Non-Formulary Medication (Melatonin/Pyridoxine Hcl (B6) [Melatonin 3 Mg Tablet] ) 3 mg PO BEDTIME PRN PRN Reason: Insomnia Pantoprazole Sodium (Protonix) 40 mg PO DAILY [facility] Sertraline HCl (Zoloft) 150 mg PO DAILY [facility] - Exam Quality Assessment: Supplemental Oxygen General: Alert, Oriented, Cooperative, Mild Distress, Other (continues in 3L to keep saturation >90%; sleepy but arousable) HEENT: Pupils Equal, Pupils Reactive, EOMI, Mucous Membr. Moist/[place] Neck: Supple Lungs: Decreased Breath Sounds (bilateral bses), Wheezing (intermittent expiratory; decreased in past 24 hours). No: Rales Cardiovascular: Regular Rate, Regular Rhythm GI/Abdominal Exam: Normal Bowel Sounds, Soft, Non-Tender, No Distention Extremities: Normal Inspection Skin: Warm, Dry, Intact Neurological: No New Focal Deficit Psy/Mental Status: Alert, Normal Affect Sepsis Event Note - Evaluation Sepsis Screening Result: No Definite Risk - Focused Exam Vital Signs: Vital Signs Temp Pulse Pulse Resp BP BP Pulse Ox 03/02/19 08:00 37.3 C 96 20 167/101 H 95 03/02/19 06:39 163/100 H 03/02/19 05:00 36.9 C 95 20 97 03/02/19 03:18 03/02/19 03:16 155/95 H 03/02/19 01:00 18 97 Pulse Ox 03/02/19 08:00 03/02/19 06:39 03/02/19 05:00 03/02/19 03:18 97 03/02/19 03:16 03/02/19 01:00 Date Exam was Performed: 03/02/19 Time Exam was Performed: 12:09 - Problem List & Annotations (1) Pneumonia SNOMED Code(s): 415929204 Code(s): J18.9 - PNEUMONIA, UNSPECIFIED ORGANISM Status: Acute Priority: Medium Current Visit: Yes Qualifiers: Pneumonia type: due to unspecified organism Laterality: unspecified laterality Lung location: unspecified part of lung Qualified Code(s): J18.9 - Pneumonia, unspecified organism - Problem List Review Problem List Initiated/Reviewed/Updated: No - My Orders Last 24 Hours: My Active Orders 03/02/19 08:00 Aspirin 81 mg PO DAILY Cholecalciferol (Vitamin D3) [Vitamin D3] 2,000 unit PO DAILY Clopidogrel [Plavix] 75 mg PO DAILY Isosorbide Mononitrate [Imdur] 60 mg PO DAILY Loratadine [Claritin] 10 mg PO DAILY Multivitamin [Multivitamins] 1 tab PO DAILY Pantoprazole [ProTONIX] 40 mg PO DAILY Sertraline [Zoloft] 150 mg PO DAILY Vitamin E 100 units PO DAILY hydroCHLOROthiazide 12.5 mg PO DAILY 03/02/19 20:00 Metoprolol Succinate [Toprol XL] 25 mg PO BEDTIME 03/01/19 12:47 Chest 2V [CR] Stat 03/01/19 13:07 Patient Status [ADT] Routine Oxygen Therapy [RC] PRN VTE/DVT Education [RC] DAILY Vital Signs [RC] Q4H Acetaminophen [Tylenol] 650 mg PO Q4H PRN Albuterol/Ipratropium [DuoNeb 3.0-0.5 MG/3 ML] 3 ml NEB QID PRN Ondansetron [Zofran] 4 mg IV Q4H PRN Resuscitation Status Routine 03/01/19 13:08 Pulse Oximetry [RC] CONTINUOUS 03/01/19 13:09 RT Aerosol Therapy [RC] ASDIRECTED 03/01/19 13:10 Sodium Chloride 0.9% [Saline Flush] 10 ml FLUSH ASDIRECTED PRN Saline Lock Insert [OM.PC] Routine 03/01/19 13:45 Levofloxacin/Dextrose 5%-Water [Levaquin in D5W 750 MG/150 ML] 750 mg Premix Bag 1 bag IV Q24H 03/01/19 16:40 Codeine/guaiFENesin [Robitussin AC] 5 ml PO Q4H PRN 03/01/19 16:44 traZODone 100 mg PO BEDTIME PRN 03/01/19 16:49 Lidocaine 5% [Lidoderm 5%] 1,400 mg TOP DAILY PRN 03/01/19 16:52 Patient's Own Medication [Ptom] 0 each PO Q8H PRN 03/01/19 16:54 Lidocaine 5% DOSE gm TOP BID PRN 03/01/19 18:20 LORazepam [Ativan] 2 mg PO Q4H PRN 03/01/19 20:00 Melatonin 3 mg PO BEDTIME Memantine [Namenda] 10 mg PO BID [place]-3 Fatty Acids [Fish Oil] 0 mg PO BID Sucralfate [Carafate] 1 gm PO BID amLODIPine [Norvasc] 10 mg PO BEDTIME atorvaSTATin [Lipitor] 80 mg PO BEDTIME 03/01/19 Dinner Full Liquid Diet [DIET] - Assessment Assessment:: Pneumonia - Plan Plan:: 1) Continue humidified supplemental oxygen to keep saturation >90% 2) Continue IV antibiotics 3) Encourage oral intake today
[2019-03-02] MEDS ORDERED: Levofloxacin/Dextrose 5%-Water 150 ML IV ONE (13:58)
[2019-03-02] MEDS: Levofloxacin/Dextrose 5%-Water 750 MG in Premix Bag 1 BAG IV SCH (14:15)
[2019-03-02] MEDS: ASPIRIN 81 MG PO SCH (14:24)
[2019-03-02] MEDS: HYDROCHLOROTHIAZIDE 12.5 MG PO SCH (14:25)
[2019-03-02] MEDS: CHOLECALCIFEROL 1000 UNIT PO SCH (14:26)
[2019-03-02] MEDS: MULTIVITAMIN PO SCH (14:26)
[2019-03-02] MEDS: VITAMIN E 100 UNIT PO SCH (14:27)
[2019-03-02] MEDS: Clopidogrel 75 MG Tab*PT OWN MED PO SCH (14:27)
[2019-03-02] MEDS: LORATADINE 10 MG PO SCH (15:01)
[2019-03-02] MEDS: Melatonin 3 MG Tab **OWN MED PO SCH (20:00)
[2019-03-02] MEDS: LIDOCAINE TOP PRN (20:01)
[2019-03-02] MEDS: amLODIPine 10 MG Tab **OWN MED PO SCH (20:03)
[2019-03-02] MEDS: Memantine 10 MG Tab **OWN MED PO SCH (20:04)
[2019-03-02] MEDS: Metoprolol Succinate 50 MG Tab.ER **OWN MED PO SCH (20:07)
[2019-03-03] MEDS: Acetaminophen 325 MG Tab PO PRN ×3 (04:55→17:23)
[2019-03-03] MEDS: CODEINE PO PRN ×3 (04:56→13:25)
[2019-03-03] MEDS: GUAIFENESIN PO PRN ×3 (04:56→13:25)
[2019-03-03] MEDS: PANTOPRAZOLE 40 MG PO SCH (07:22)
[2019-03-03] MEDS: Albuterol/Ipratropium 3.0-0.5 MG/3 ML Neb Soln NEB PRN (07:30)
[2019-03-03] MEDS: ISOSORBIDE MONONITRATE 60 MG PO SCH (08:06)
[2019-03-03] MEDS: ASPIRIN 81 MG PO SCH (08:07)
[2019-03-03] MEDS: CHOLECALCIFEROL 1000 UNIT PO SCH (08:08)
[2019-03-03] MEDS: HYDROCHLOROTHIAZIDE 12.5 MG PO SCH (08:09)
[2019-03-03] MEDS: LORATADINE 10 MG PO SCH (08:10)
[2019-03-03] MEDS: VITAMIN E 100 UNIT PO SCH (08:11)
--- NOTE | 2019-03-03 08:12 | CR ---
DATE OF SERVICE: CLINICAL DATA: Cough. PA AND LATERAL CHEST: Comparison is made to a prior exam dated 06/10/2015. The patient is status post median sternotomy. The heart size is normal. There is calcification of the aortic arch. There is extensive calcified pleural plaque in both hemithoraces consistent with prior asbestos exposure. There is marked pleural thickening in both apices. These findings have not changed significantly from the prior exam. There is increased density with consolidation in the left lung base on today's study that was not present on the prior exam consistent with basilar atelectasis or infiltrate. Pneumonia should be considered. The exam is otherwise unchanged from the prior. A followup exam is recommended. [id number] [facility]
[2019-03-03] MEDS: SUCRALFATE 1 GM PO SCH ×2 (08:14→19:56)
[2019-03-03] MEDS: Clopidogrel 75 MG Tab*PT OWN MED PO SCH (08:15)
[2019-03-03] MEDS: Memantine 10 MG Tab **OWN MED PO SCH ×2 (08:16→19:58)
[2019-03-03] MEDS: MULTIVITAMIN PO SCH (08:17)
[2019-03-03] MEDS: SERTRALINE 100 MG PO SCH (08:18)
[2019-03-03] MEDS: BENZONATATE 200 MG PO PRN (08:21)
[2019-03-03] MEDS: FATTY ACIDS PO SCH ×2 (08:25→19:57)
[2019-03-03] MEDS: OMEGA PO SCH ×2 (08:25→19:57)
[2019-03-03] MEDS: LIDOCAINE TOP PRN (11:03)
[2019-03-03] MEDS ORDERED: Levofloxacin/Dextrose 5%-Water 750 MG in Premix Bag 1 BAG IV ONE (11:12)
[2019-03-03] MEDS ORDERED: Levofloxacin/Dextrose 5%-Water 150 ML IV ONE (11:25)
--- NOTE | 2019-03-03 11:31 | PCM.PN ---
- General Info Date of Service: 03/03/19 Admission Dx/Problem (Free Text): Admission Diagnosis/Problem Admission Diagnosis/Problem Pneumonia Subjective Update: Continues to complain of weakness and fatigue. Quite concerned about bloody sputum that he produces after coughing. Appetite poor but is drinking fluids. No vomiting or diarrhea. Developed chest pain after walking to bathroom without supplemental oxygen. This resolved with NTG. Functional Status: Reports: Pain Controlled (chest pain this morning after walking to BR without supplemental oxygen) - Review of Systems General: Reports: Weakness, Fatigue. Denies: Fever, Appetite HEENT: Reports: No Symptoms Pulmonary: Reports: Shortness of Breath, Cough, Sputum Cardiovascular: Reports: Chest Pain, Dyspnea on Exertion, Orthopnea Gastrointestinal: Denies: Abdominal Pain, Diarrhea, Nausea, Vomiting Musculoskeletal: Reports: No Symptoms Skin: Reports: No Symptoms Neurological: Reports: No Symptoms - Patient Data Vitals - Most Recent: Last Vital Signs Temp 37.2 C 03/03/19 07:31 Pulse 79 03/03/19 07:31 Resp 28 H 03/03/19 07:31 BP 141/81 H 03/03/19 07:31 Pulse Ox 91 L 03/03/19 07:31 Weight - Most Recent: 90.083 kg Lab Results Last 24 Hours: Laboratory Results - last 24 hr 03/03/19 Range/Units 09:20 WBC 9.0 D (4.0-11.0) K/uL RBC 3.88 L (4.50-6.50) M/uL Hgb 11.8 L (13.0-18.0) g/dL Hct 35.9 L (40.0-54.0) % MCV 93 (76-96) fL MCH 30.4 (27.0-32.0) pg MCHC 32.9 (31.0-35.0) g/dL RDW 12.9 (11.0-16.0) % Plt Count 203 (150-400) K/uL MPV 9.6 (6.0-10.0) fL Neut % (Auto) 69.7 (45.0-70.0) % Lymph % (Auto) 15.9 L (20.0-40.0) % [place] % (Auto) 13.2 H (3.0-10.0) % Eos % (Auto) 0.9 L (1.0-5.0) % Baso % (Auto) 0.3 (0.0-0.5) % Neut # (Auto) 6.24 (2.00-7.50) K/uL Lymph # (Auto) 1.42 L (1.50-4.00) K/uL [place] # (Auto) 1.18 H (0.20-0.80) K/uL Eos # (Auto) 0.08 (0.04-0.40) K/uL Baso # (Auto) 0.03 (0.02-0.10) K/uL [place] Results Last 24 Hours: Microbiology 03/01/19 15:00 MRSA Surveillance Culture - Final Nares, Left NO MRSA ISOLATED Med Orders - Current: Current Medications Acetaminophen (Tylenol) 650 mg PO Q4H PRN PRN Reason: Pain (Mild 1-3)/fever Last Admin: 03/03/19 11:18 Dose: 650 mg Albuterol/Ipratropium (Duoneb 3.0-0.5 Mg/3 Ml) 3 ml NEB QID PRN PRN Reason: Shortness Of Breath/wheezing Last Admin: 03/03/19 07:30 Dose: 3 ml Atorvastatin Calcium (Lipitor) 80 mg PO BEDTIME [facility] Last Admin: 03/02/19 20:05 Dose: 80 mg Guaifenesin/Codeine Phosphate (Robitussin Ac) 5 ml PO Q4H PRN PRN Reason: Cough Last Admin: 03/03/19 07:23 Dose: 5 ml Levofloxacin/Dextrose 750 mg/ (Premix) 150 mls @ 100 mls/hr IV ONETIME ONE Stop: 03/03/19 12:41 Isosorbide Mononitrate (Imdur) 60 mg PO DAILY [facility] Last Admin: 03/03/19 08:06 Dose: 60 mg Lidocaine HCl (Lidocaine 5%) gm TOP BID PRN PRN Reason: Pain Lorazepam (Ativan) 2 mg PO Q4H PRN PRN Reason: Anxiety Last Admin: 03/02/19 20:10 Dose: 2 mg Metoprolol Succinate (Toprol Xl) 25 mg PO BEDTIME [facility] Last Admin: 03/02/19 20:07 Dose: 25 mg [place]-3 Fatty Acids (Fish Oil) 1,000 Mg Cap Own Med 0 mg PO BID [facility] Last Admin: 03/03/19 08:25 Dose: 1,000 mg Ondansetron HCl (Zofran) 4 mg IV Q4H PRN PRN Reason: Nausea/Vomiting Aspirin 81 Mg Ec Tab (*Pt Own Med*) 0 each PO DAILY [facility] Last Admin: 03/03/19 08:07 Dose: 81 each Benzonatate 200 Mg (Caps Own Med) 0 each PO Q8H PRN PRN Reason: Cough Last Admin: 03/03/19 08:21 Dose: 200 each Clopidogrel 75 Mg (Tab*Pt Own Med*) 0 each PO DAILY [facility] Last Admin: 03/03/19 08:15 Dose: 75 each Hydrochlorothiazide 12.5 Mg Tab *Pt Own Med* 0 each PO DAILY [facility] Last Admin: 03/03/19 08:09 Dose: 12.5 each Lidocaine 5% 700 Mg (Patch*Pt Own Med*) 0 each TOP DAILY PRN PRN Reason: PAIN Last Admin: 03/03/19 11:03 Dose: 1 each Melatonin 3 Mg Tab * (*Own Med) 0 each PO BEDTIME [facility] Last Admin: 03/02/19 20:00 Dose: 3 each Sertraline 100 Mg (Tab*Pt Own Med*) 0 each PO DAILY [facility] Last Admin: 03/03/19 08:18 Dose: 150 each Amlodipine 10 Mg Tab (Own Med) 0 each PO BEDTIME [facility] Last Admin: 03/02/19 20:03 Dose: 1 each Cholecalciferol ( Vitamin D3) 1,000 Unit Cap*Pt Own Med* 0 each PO DAILY [facility] Last Admin: 03/03/19 08:08 Dose: 2,000 each Loratadine 10 Mg Tab (*Pt Own Med*) 0 each PO DAILY [facility] Last Admin: 03/03/19 08:10 Dose: 10 each Memantine 10 Mg Tab (Own Med) 0 each PO BID [facility] Last Admin: 03/03/19 08:16 Dose: 10 each Multivitamin*Pt Own (Med*) 0 each PO DAILY [facility] Last Admin: 03/03/19 08:17 Dose: 1 each Pantoprazole 40 Mg (Tab.Cr*Pt Own Med*) 0 each PO ACBREAKFAST [facility] Last Admin: 03/03/19 07:22 Dose: 40 each Vitamin E 100 Unit (Cap*Pt Own Med*) 0 each PO DAILY [facility] Last Admin: 03/03/19 08:11 Dose: 1,000 each Sodium Chloride (Saline Flush) 10 ml FLUSH ASDIRECTED PRN PRN Reason: Keep Vein Open Last Admin: 03/02/19 14:00 Dose: 10 ml Sucralfate (Carafate) 1 gm PO BID [facility] Last Admin: 03/03/19 08:14 Dose: 1 gm Trazodone HCl (Trazodone) 100 mg PO BEDTIME PRN PRN Reason: Sleep Last Admin: 03/02/19 22:56 Dose: 100 mg Discontinued Medications Albuterol/Ipratropium (Duoneb 3.0-0.5 Mg/3 Ml) 3 ml INH QID PRN PRN Reason: Dyspnea Aspirin (Aspirin) 81 mg CHEW DAILY [facility] Clopidogrel Bisulfate (Plavix) 75 mg PO DAILY [facility] Hydrochlorothiazide (Hydrochlorothiazide) 12.5 mg PO DAILY [facility] Levofloxacin/Dextrose 750 mg/ (Premix) 150 mls @ 100 mls/hr IV Q24H [facility] Last Admin: 03/02/19 14:15 Dose: 100 mls/hr Levofloxacin/Dextrose (Levaquin In D5w 750 Mg/150 Ml) Confirm Administered Dose 150 mls @ as directed IV .STK-MED ONE Stop: 03/01/19 14:01 Last Admin: 03/01/19 14:18 Dose: Not Given Levofloxacin/Dextrose (Levaquin In D5w 750 Mg/150 Ml) Confirm Administered Dose 150 mls @ as directed IV .STK-MED ONE Stop: 03/02/19 13:59 Last Admin: 03/02/19 14:28 Dose: Not Given Lidocaine (Lidoderm 5%) mg TOP DAILY PRN PRN Reason: Pain Lidocaine HCl (Lidocaine 5%) 1 gm TOP ONETIME PRN PRN Reason: Pain Loratadine (Claritin) 10 mg PO DAILY [facility] Memantine (Namenda) 10 mg PO DAILY [facility] Morphine Sulfate (Morphine) Confirm Administered Dose 2 mg .ROUTE .STK-MED ONE Stop: 03/01/19 23:10 Last Admin: 03/01/19 23:27 Dose: 2 mg Morphine Sulfate (Morphine) 2 mg IVPUSH ONETIME ONE Stop: 03/02/19 04:22 Last Admin: 03/02/19 04:35 Dose: 2 mg Nitroglycerin (Nitrostat) 0.4 mg SL Q5M PRN PRN Reason: Chest Pain Last Admin: 03/02/19 06:39 Dose: 0.4 mg Nitroglycerin (Nitrostat) 0.4 mg SL ASDIRECTED PRN PRN Reason: Chest Pain Non-Formulary Medication (Guaifenesin/Codeine Phosphate [Codeine-Guaifen 10-100 Mg/5 Ml]) 5 ml PO Q4HR PRN PRN Reason: Cough Non-Formulary Medication (Melatonin/Pyridoxine Hcl (B6) [Melatonin 3 Mg Tablet] ) 3 mg PO BEDTIME PRN PRN Reason: Insomnia Pantoprazole Sodium (Protonix) 40 mg PO DAILY [facility] Sertraline HCl (Zoloft) 150 mg PO DAILY [facility] - Exam Quality Assessment: Supplemental Oxygen General: Alert, Oriented, Cooperative, Mild Distress HEENT: Pupils Equal, Pupils Reactive, EOMI, Mucous Membr. Moist/[place] Neck: Supple Lungs: Decreased Breath Sounds, Rales (scattered on right), Stridor (occasional expiratory) GI/Abdominal Exam: Normal Bowel Sounds, Soft, Non-Tender, No Distention Back Exam: Normal Inspection Extremities: Normal Capillary Refill Skin: Warm, Dry, Intact Neurological: No New Focal Deficit Psy/Mental Status: Alert, Normal Affect Sepsis Event Note - Evaluation Sepsis Screening Result: No Definite Risk - Focused Exam Vital Signs: Vital Signs Temp Pulse Resp BP Pulse Ox 03/03/19 07:31 37.2 C 79 28 H 141/81 H 91 L 03/03/19 05:00 37.2 C 82 18 144/78 H 97 03/03/19 01:00 37.7 C 85 18 142/84 H 93 L Date Exam was Performed: 03/03/19 Time Exam was Performed: 11:26 - Problem List & Annotations (1) Pneumonia SNOMED Code(s): 573477054 Code(s): J18.9 - PNEUMONIA, UNSPECIFIED ORGANISM Status: Acute Priority: Medium Current Visit: Yes Qualifiers: Pneumonia type: due to unspecified organism Laterality: unspecified laterality Lung location: unspecified part of lung Qualified Code(s): J18.9 - Pneumonia, unspecified organism - Problem List Review Problem List Initiated/Reviewed/Updated: No - My Orders Last 24 Hours: My Active Orders 03/02/19 13:30 Patient's Own Medication [Ptom] 0 each PO DAILY Patient's Own Medication [Ptom] 0 each PO DAILY Patient's Own Medication [Ptom] 0 each PO DAILY Patient's Own Medication [Ptom] 0 each PO DAILY Patient's Own Medication [Ptom] 0 each TOP DAILY PRN 03/02/19 13:45 Patient's Own Medication [Ptom] 0 each PO DAILY Patient's Own Medication [Ptom] 0 each PO DAILY Patient's Own Medication [Ptom] 0 each PO DAILY 03/02/19 20:00 Metoprolol Succinate [Toprol XL] 25 mg PO BEDTIME Patient's Own Medication [Ptom] 0 each PO BEDTIME [facility]'s Own Medication [Ptom] 0 each PO BEDTIME [facility]'s Own Medication [Ptom] 0 each PO BID 03/03/19 07:00 Patient's Own Medication [Ptom] 0 each PO ACBREAKFAST 03/03/19 08:00 Patient's Own Medication [Ptom] 0 each PO DAILY 03/03/19 11:12 Levofloxacin/Dextrose 5%-Water [Levaquin in D5W 750 MG/150 ML] 750 mg Premix Bag 1 bag IV ONETIME 03/03/19 Lunch Cardiac Diet [Heart Healthy Diet] [DIET] - Assessment Assessment:: Pneumonia - Plan Plan:: 1) Continue humidified supplemental oxygen to keep saturation >90% 2) Continue IV antibiotics 3) Encourage oral intake today 03/03/19 1) Change to inpatient acute status. 2) Continue humidified supplemental oxygen to keep saturation >90% 3) Continue IV antibiotics 4) Continue to encourage oral intake-offer Ensure in addition to meal tray 5) Activity as tolerated
[2019-03-03] MEDS: LORazepam 1 MG Tab PO PRN ×3 (13:24→18:43)
[2019-03-03] MEDS ORDERED: Nitroglycerin 0.4 MG Tab.SL SL PRN (17:57)
[2019-03-03] MEDS: Metoprolol Succinate 50 MG Tab.ER **OWN MED PO SCH (18:06)
[2019-03-03] MEDS: Melatonin 3 MG Tab **OWN MED PO SCH (19:57)
[2019-03-03] MEDS: amLODIPine 10 MG Tab **OWN MED PO SCH (19:57)
[2019-03-04] MEDS: CODEINE PO PRN ×2 (00:13→08:25)
[2019-03-04] MEDS: GUAIFENESIN PO PRN ×2 (00:13→08:25)
[2019-03-04] MEDS: Metoprolol Succinate 50 MG Tab.ER **OWN MED PO SCH (07:56)
[2019-03-04] MEDS: FATTY ACIDS PO SCH (08:22)
[2019-03-04] MEDS: OMEGA PO SCH (08:22)
[2019-03-04] MEDS: ASPIRIN 81 MG PO SCH (08:22)
[2019-03-04] MEDS: PANTOPRAZOLE 40 MG PO SCH (08:22)
[2019-03-04] MEDS: SUCRALFATE 1 GM PO SCH (08:22)
[2019-03-04] MEDS: ISOSORBIDE MONONITRATE 60 MG PO SCH (08:22)
[2019-03-04] MEDS: LORATADINE 10 MG PO SCH (08:23)
[2019-03-04] MEDS: Memantine 10 MG Tab **OWN MED PO SCH (08:23)
[2019-03-04] MEDS: Clopidogrel 75 MG Tab*PT OWN MED PO SCH (08:23)
[2019-03-04] MEDS: HYDROCHLOROTHIAZIDE 12.5 MG PO SCH (08:23)
[2019-03-04] MEDS: CHOLECALCIFEROL 1000 UNIT PO SCH (08:23)
[2019-03-04] MEDS: VITAMIN E 100 UNIT PO SCH (08:24)
[2019-03-04] MEDS: MULTIVITAMIN PO SCH (08:24)
[2019-03-04] MEDS: SERTRALINE 100 MG PO SCH (08:24)
[2019-03-04] MEDS ORDERED: Levofloxacin/Dextrose 5%-Water 750 MG in Premix Bag 1 BAG IV ONE (10:10)
[2019-03-04] MEDS ORDERED: Levofloxacin/Dextrose 5%-Water 150 ML IV ONE (11:42)
[2019-03-04 12:52] VITALS: BP 122/79; PULSE 84
--- NOTE | 2019-03-04 17:39 | PCM.DCSUM1 ---
Discharge Summary - Hospital Course Free Text/Narrative:: This patient has continued to improve in general. He is reporting an increase in his energy level and a decrease in weakness and fatigue. He continues to require approximately 2L oxygen per nasal cannula to keep saturations greater than 90%. He is ambulating greater distances today and tolerating this as well. His appetite remains poor but he does drink fluids well. He is somewhat adverse to "hospital food." Patient will complete a 10-day course of levofloxacin, changing to oral medication starting 03/05; prescriptions for this and guaifenesin with codeine were sent to [facility] and family picked these up. Brief History: Multiple underlying health problems with acute pneumonia. Diagnosis: Stroke: No - Discharge Data Discharge Date: 03/04/19 Discharge Disposition: Home, Self-Care 01 Condition: Good - Referral to Home Health Primary Care Physician: PCP None - Discharge Diagnosis/Problem(s) (1) Pneumonia SNOMED Code(s): 926452434 ICD Code: J18.9 - PNEUMONIA, UNSPECIFIED ORGANISM Status: Acute Priority : Medium Current Visit: Yes Qualifiers: Pneumonia type: due to unspecified organism Laterality: unspecified laterality Lung location: unspecified part of lung Qualified Code(s): J18.9 - Pneumonia, unspecified organism - Patient Summary/Data Recommended Follow-up Testing/Procedures: Patient should be seen by PCP in about a week for follow up. He should return to the ED if he is not continuing to progress or seems to be worse in any way. - Patient Instructions Diet: Heart Healthy Diet, Drink 8-10+ Glasses/Day Driving: May Drive Today Showering/Bathing: May Shower Notify Provider of: Fever, Increased Pain, Nausea and/or Vomiting - Discharge Plan *PRESCRIPTION DRUG MONITORING PROGRAM REVIEWED*: Not Applicable Home Medications: Home Meds Aspirin [Thom Chewable Aspirin] 81 mg CHEW DAILY 12/19/13 [History] Metoprolol Succinate 25 mg PO DAILY 12/19/13 [History] Multivitamin [Multivitamins] 1 tab PO DAILY 12/19/13 [History] Ducor-3 Fatty Acids [Fish Oil] 1,000 mg PO BID 12/19/13 [History] Sertraline [Zoloft] 150 mg PO DAILY 12/19/13 [History] Sucralfate [Carafate] 1 gm PO BID 12/19/13 [History] amLODIPine [Norvasc] 10 mg PO BEDTIME 12/19/13 [History] traZODone 100 mg PO BEDTIME PRN 12/19/13 [History] Cholecalciferol (Vitamin D3) [Vitamin D-3] 2,000 unit PO DAILY 12/20/14 [History ] Hydrochlorothiazide 12.5 mg PO DAILY 12/20/14 [History] Isosorbide Mononitrate [Isosorbide Mononitrate ER] 2 tab PO DAILY 12/20/14 [ History] Memantine HCl [Namenda] 10 mg PO BID 12/20/14 [History] Nitroglycerin [Nitrostat] 0.4 mg SL ASDIRECTED PRN 12/20/14 [History] Vitamin E 100 units PO DAILY 12/20/14 [History] atorvaSTATin Calcium [Atorvastatin Calcium] 80 mg PO QPM 12/20/14 [History] Albuterol/Ipratropium [DuoNeb 3.0-0.5 MG/3 ML] 3 ml INH QID PRN 03/01/19 [ History] Benzonatate 200 mg PO Q8HR PRN 03/01/19 [History] Clopidogrel [Plavix] 75 mg PO DAILY 03/01/19 [History] Lidocaine 5% 1 applic TOP BID PRN 03/01/19 [History] Lidocaine 5% [Lidoderm 5%] 2 patch TOP DAILY PRN 03/01/19 [History] Loratadine [Claritin] 10 mg PO DAILY 03/01/19 [History] Melatonin/Pyridoxine HCl (B6) [Melatonin 3 mg Tablet] 3 mg PO BEDTIME PRN [History] Pantoprazole Sodium [Protonix] 40 mg PO DAILY 03/01/19 [History] guaiFENesin/Codeine Phosphate [Codeine-Guaifen 10-100 mg/5 ml] 5 ml PO Q4HR PRN 03/01/19 [History] Oxygen Therapy Mode: Nasal Cannula Oxygen Flow Rate (L/min): 2 Maintain SpO2% greater than: 90 Forms: ED Department Discharge Referrals: PCP,None [Primary Care Provider] - - Discharge Summary/Plan Comment DC Time >30 min.: Yes - Patient Data Vitals - Most Recent: Last Vital Signs Temp 36.8 C 03/04/19 12:50 Pulse 84 03/04/19 12:50 Resp 18 03/04/19 12:50 BP 122/79 03/04/19 12:50 Pulse Ox 96 03/04/19 12:50 Weight - Most Recent: 90.083 kg Med Orders - Current: Current Medications Acetaminophen (Tylenol) 650 mg PO Q4H PRN PRN Reason: Pain (Mild 1-3)/fever Last Admin: 03/03/19 17:23 Dose: 650 mg Albuterol/Ipratropium (Duoneb 3.0-0.5 Mg/3 Ml) 3 ml NEB QID PRN PRN Reason: Shortness Of Breath/wheezing Last Admin: 03/03/19 07:30 Dose: 3 ml Atorvastatin Calcium (Lipitor) 80 mg PO BEDTIME [facility] Last Admin: 03/03/19 19:56 Dose: 80 mg Guaifenesin/Codeine Phosphate (Robitussin Ac) 5 ml PO Q4H PRN PRN Reason: Cough Last Admin: 03/04/19 08:25 Dose: 5 ml Isosorbide Mononitrate (Imdur) 60 mg PO DAILY [facility] Last Admin: 03/04/19 08:22 Dose: 60 mg Lorazepam (Ativan) 2 mg PO Q4H PRN PRN Reason: Anxiety Last Admin: 03/03/19 18:43 Dose: 2 mg Metoprolol Succinate (Toprol Xl) 25 mg PO BEDTIME [facility] Last Admin: 03/04/19 07:56 Dose: Not Given Nitroglycerin (Nitrostat) 0.4 mg SL Q5M PRN PRN Reason: Chest Pain Last Admin: 03/03/19 18:43 Dose: 0.4 mg Ducor-3 Fatty Acids (Fish Oil) 1,000 Mg Cap Own Med 0 mg PO BID [facility] Last Admin: 03/04/19 08:22 Dose: 1,000 mg Ondansetron HCl (Zofran) 4 mg IV Q4H PRN PRN Reason: Nausea/Vomiting Aspirin 81 Mg Ec Tab (*Pt Own Med*) 0 each PO DAILY [facility] Last Admin: 03/04/19 08:22 Dose: 81 each Benzonatate 200 Mg (Caps Own Med) 0 each PO Q8H PRN PRN Reason: Cough Last Admin: 03/03/19 08:21 Dose: 200 each Clopidogrel 75 Mg (Tab*Pt Own Med*) 0 each PO DAILY [facility] Last Admin: 03/04/19 08:23 Dose: 75 each Hydrochlorothiazide 12.5 Mg Tab *Pt Own Med* 0 each PO DAILY [facility] Last Admin: 03/04/19 08:23 Dose: 12.5 each Lidocaine 5% 700 Mg (Patch*Pt Own Med*) 0 each TOP DAILY PRN PRN Reason: PAIN Last Admin: 03/03/19 11:03 Dose: 1 each Melatonin 3 Mg Tab * (*Own Med) 0 each PO BEDTIME [facility] Last Admin: 03/03/19 19:57 Dose: 3 each Sertraline 100 Mg (Tab*Pt Own Med*) 0 each PO DAILY [facility] Last Admin: 03/04/19 08:24 Dose: 150 each Amlodipine 10 Mg Tab (Own Med) 0 each PO BEDTIME [facility] Last Admin: 03/03/19 19:57 Dose: 10 each Cholecalciferol ( Vitamin D3) 1,000 Unit Cap*Pt Own Med* 0 each PO DAILY [facility] Last Admin: 03/04/19 08:23 Dose: 2,000 each Loratadine 10 Mg Tab (*Pt Own Med*) 0 each PO DAILY [facility] Last Admin: 03/04/19 08:23 Dose: 10 each Memantine 10 Mg Tab (Own Med) 0 each PO BID [facility] Last Admin: 03/04/19 08:23 Dose: 10 each Multivitamin*Pt Own (Med*) 0 each PO DAILY [facility] Last Admin: 03/04/19 08:24 Dose: 1 each Pantoprazole 40 Mg (Tab.Cr*Pt Own Med*) 0 each PO ACBREAKFAST [facility] Last Admin: 03/04/19 08:22 Dose: 40 each Vitamin E 100 Unit (Cap*Pt Own Med*) 0 each PO DAILY [facility] Last Admin: 03/04/19 08:24 Dose: 100 each Sodium Chloride (Saline Flush) 10 ml FLUSH ASDIRECTED PRN PRN Reason: Keep Vein Open Last Admin: 03/02/19 14:00 Dose: 10 ml Sucralfate (Carafate) 1 gm PO BID [facility] Last Admin: 03/04/19 08:22 Dose: 1 gm Trazodone HCl (Trazodone) 100 mg PO BEDTIME PRN PRN Reason: Sleep Last Admin: 03/04/19 00:13 Dose: 100 mg Discontinued Medications Albuterol/Ipratropium (Duoneb 3.0-0.5 Mg/3 Ml) 3 ml INH QID PRN PRN Reason: Dyspnea Aspirin (Aspirin) 81 mg CHEW DAILY [facility] Clopidogrel Bisulfate (Plavix) 75 mg PO DAILY [facility] Hydrochlorothiazide (Hydrochlorothiazide) 12.5 mg PO DAILY [facility] Levofloxacin/Dextrose 750 mg/ (Premix) 150 mls @ 100 mls/hr IV Q24H [facility] Last Admin: 03/02/19 14:15 Dose: 100 mls/hr Levofloxacin/Dextrose (Levaquin In D5w 750 Mg/150 Ml) Confirm Administered Dose 150 mls @ as directed IV .Connect-MED ONE Stop: 03/01/19 14:01 Last Admin: 03/01/19 14:18 Dose: Not Given Levofloxacin/Dextrose (Levaquin In D5w 750 Mg/150 Ml) Confirm Administered Dose 150 mls @ as directed IV .Connect-MED ONE Stop: 03/02/19 13:59 Last Admin: 03/02/19 14:28 Dose: Not Given Levofloxacin/Dextrose 750 mg/ (Premix) 150 mls @ 100 mls/hr IV ONETIME ONE Stop: 03/03/19 12:41 Last Admin: 03/03/19 11:28 Dose: 100 mls/hr Levofloxacin/Dextrose (Levaquin In D5w 750 Mg/150 Ml) Confirm Administered Dose 150 mls @ as directed IV .Connect-MED ONE Stop: 03/03/19 11:26 Last Admin: 03/03/19 11:43 Dose: Not Given Levofloxacin/Dextrose 750 mg/ (Premix) 150 mls @ 100 mls/hr IV ONETIME ONE Stop: 03/04/19 11:39 Last Admin: 03/04/19 11:46 Dose: 100 mls/hr Levofloxacin/Dextrose (Levaquin In D5w 750 Mg/150 Ml) Confirm Administered Dose 150 mls @ as directed IV .[employer]-MED ONE Stop: 03/04/19 11:43 Last Admin: 03/04/19 12:34 Dose: Not Given Lidocaine (Lidoderm 5%) mg TOP DAILY PRN PRN Reason: Pain Lidocaine HCl (Lidocaine 5%) 1 gm TOP ONETIME PRN PRN Reason: Pain Lidocaine HCl (Lidocaine 5%) gm TOP BID PRN PRN Reason: Pain Loratadine (Claritin) 10 mg PO DAILY [facility] Memantine (Namenda) 10 mg PO DAILY [facility] Morphine Sulfate (Morphine) Confirm Administered Dose 2 mg .ROUTE .STK-MED ONE Stop: 03/01/19 23:10 Last Admin: 03/01/19 23:27 Dose: 2 mg Morphine Sulfate (Morphine) 2 mg IVPUSH ONETIME ONE Stop: 03/02/19 04:22 Last Admin: 03/02/19 04:35 Dose: 2 mg Nitroglycerin (Nitrostat) 0.4 mg SL Q5M PRN PRN Reason: Chest Pain Last Admin: 03/02/19 06:39 Dose: 0.4 mg Nitroglycerin (Nitrostat) 0.4 mg SL ASDIRECTED PRN PRN Reason: Chest Pain Non-Formulary Medication (Guaifenesin/Codeine Phosphate [Codeine-Guaifen 10-100 Mg/5 Ml]) 5 ml PO Q4HR PRN PRN Reason: Cough Non-Formulary Medication (Melatonin/Pyridoxine Hcl (B6) [Melatonin 3 Mg Tablet] ) 3 mg PO BEDTIME PRN PRN Reason: Insomnia Pantoprazole Sodium (Protonix) 40 mg PO DAILY [facility] Sertraline HCl (Zoloft) 150 mg PO DAILY [facility]
== END 2019-03-04 18:00 | disposition home or self-care (01) | DRG 195 ==
LOC: LB.ED 12:10 → LB.MS 13:07 → OBSVTOIN 03-03 11:28
PROVIDERS: ADMIT Nurse Practitioner; ATTEND Nurse Practitioner
DX: R05 Cough (principal); R53.1 Weakness; J18.9 Pneumonia, unspecified organism; H91.90 Unspecified hearing loss, unspecified ear; I25.119 Atherosclerotic heart disease of native coronary artery with unspecified angina pectoris; I10 Essential (primary) hypertension; I25.10 Atherosclerotic heart disease of native coronary artery without angina pectoris; J84.10 Pulmonary fibrosis, unspecified; F32.9 Major depressive disorder, single episode, unspecified; J61 Pneumoconiosis due to asbestos and other mineral fibers; H91.92 Unspecified hearing loss, left ear; Z79.82 Long term (current) use of aspirin; Z79.899 Other long term (current) drug therapy; Z88.2 Allergy status to sulfonamides; Z88.8 Allergy status to other drugs, medicaments and biological substances; Z95.5 Presence of coronary angioplasty implant and graft; Z98.49 Cataract extraction status, unspecified eye; Z87.891 Personal history of nicotine dependence; Z99.81 Dependence on supplemental oxygen
CPT/HCPCS: 36415; 71046; 80048; 85025; 96365; 96366; 96375; 96376; A9270-GY; G0378; J1956; J2270; J7620-GY

== ENCOUNTER 2020-04-01 12:41 | Emergency (ER) | payer OTHER ==
[2020-04-01 13:43] VITALS: BP 134/78; PULSE 76
[2020-04-01] MEDS ORDERED: Ciprofloxacin 500 MG Tab ONE (14:00)
--- NOTE | 2020-04-01 18:29 | ER ---
REASON FOR EMERGENCY ROOM VISIT: Hematuria. HISTORY: This 74-year-old man comes in with a 2-day history of slightly bloody urine accompanied by some dysuria and increased urinary frequency. He does have a history of prostate cancer for which he was treated with radiation (implants) approximately 1 year ago. He has had a history of urinary incontinence for the past year ever since his diagnosis of prostate cancer was made. He does typically have nocturia 1-2 times per night and that has not changed. He denies any fever or chills. He does have chronic low back pain, which seems to be somewhat worse recently, but he does not have any high mid back pain that came on along with his hematuria. He does have a past history of renal calculi, which was very symptomatic and very painful back in 2009. His symptoms now bear no resemblance to that. He denies any GI symptoms. He has had no fever or chills. PAST MEDICAL HISTORY: 1. Asbestosis diagnosed in 1984, for which he underwent a left thoracotomy. As a result of his chronic asbestosis, he has been on home oxygen for the past 3 years. 2. Coronary artery disease with history of coronary artery bypass grafting and numerous stents, the last being 8 months ago. 3. Hypertension. 4. Hypercholesterolemia. 5. Knee replacement surgery. MEDICATIONS: Reviewed. Please see electronic medical record. ALLERGIES: TO SULFA AND ZOLPIDEM TARTRATE. REVIEW OF SYSTEMS: Pertinent positives and negatives as listed in the HPI. PHYSICAL EXAMINATION: GENERAL: Reveals a pleasant man, in no acute distress. VITAL SIGNS: He is afebrile. Heart rate is 76, blood pressure 134/78, respiratory rate 16, O2 sats 96% on oxygen per nasal cannula. HEENT: Head is normocephalic. No scleral icterus is noted. No conjunctivitis. Oropharynx is normal. NECK: Supple. No adenopathy. CHEST: Clear to auscultation, but he has definite decreased breath sounds on the left side (which is not new according to the patient). There are no wheezes or rhonchi. CARDIAC: Regular rate without murmur. ABDOMEN: Scaphoid, soft, and nontender. There is no rebound or guarding. No hepatosplenomegaly. No palpable mass. He has no CVA tenderness. EXTREMITIES: [place] and warm with no edema. NEUROLOGIC: Cranial nerves 2-12 intact. Deep tendon reflexes symmetrical. Muscle strength, bulk and tone are normal and symmetrical. BACK: Normal straight leg raising. No tenderness to percussion over his spinous processes. LABORATORY DATA: He does have a borderline elevation of his white count at 11,100. His CMP is unremarkable with no elevation of liver enzymes and no evidence of significant renal impairment. His urinalysis shows that he has proteinuria, large amount of occult blood, moderate leukocyte esterase, 30-40 RBCs per high-power field and greater than 100 WBCs per high-power field with bacteria. IMPRESSION: Cystitis. PLAN: I decided to treat him with ciprofloxacin 500 mg p.o. b.i.d. x6 days. I stressed the importance of adequate hydration. I did discuss the side effects of Cipro including tendinopathy and so forth. He understands this. He does have an appointment to see his urologist, but that is not until July. If this remains problematic for him, we may need to have him see his urologist sooner. He understands and agrees with this plan. All questions were answered. RADHA /[id number]
== END 2020-04-01 14:32 | disposition home or self-care (01) ==
LOC: LB.ED 12:41
DX: N30.91 Cystitis, unspecified with hematuria (principal); I10 Essential (primary) hypertension; Z88.2 Allergy status to sulfonamides; Z88.8 Allergy status to other drugs, medicaments and biological substances
CPT/HCPCS: 36415; 80053; 81001; 85025; 99283; A9270-GY

== ENCOUNTER 2020-07-21 22:25 | Emergency (ER) | payer MEDICARE, OTHER ==
[2020-07-21] MEDS ORDERED: Fluconazole Susp 40 MG/1 ML 35 ML Bottle ONE (23:00)
[2020-07-21 23:10] VITALS: BP 142/84; PULSE 78
[2020-07-21] MEDS: GI Cocktail Oral Solution 30 ML PO ONE (23:15)
--- NOTE | 2020-07-22 00:17 | EDM.PDOC ---
ED HPI GENERAL MEDICAL PROBLEM - General Chief Complaint: ENT Problem Stated Complaint: BLOOD IN SPUTUM Time Seen by Provider: 07/21/20 22:30 Source of Information: Reports: Patient History Limitations: Reports: No Limitations - History of Present Illness INITIAL COMMENTS - FREE TEXT/NARRATIVE: patient presented to the ER with a c/o cough after swallowing. Reports that he has a h/o candidal esophagitis for which he is on nystatin solution for the last week. But over the last 24-48hr his symptoms has gotten worse after they were controlled. He reports that he was on fluconazole for the same symptoms 2 months ago which helped at that time. His esophageal issue started after a course of abx for her UTI. He underwent and EGD that confirmed the findings on April/2020. No nausea/emesis. No abd pain. no fever or chills. No CP or SOB. Onset: Gradual Duration: Week(s): (8) throat Pain Score (Numeric/FACES): 4 - Related Data Allergies Allergy/AdvReac Type Severity Reaction Status Date / Time Sulfa (Sulfonamide Allergy Rash Verified 07/21/20 23:37 Antibiotics) zolpidem tartrate Allergy Change Verified 07/21/20 23:37 [From Melonieien] Mental Status Home Meds: Home Meds Aspirin [Thom Chewable Aspirin] 81 mg CHEW DAILY 12/19/13 [History] Metoprolol Succinate 25 mg PO DAILY 12/19/13 [History] Multivitamin [Multivitamins] 1 tab PO DAILY 12/19/13 [History] [place]-3 Fatty Acids [Fish Oil] 1,000 mg PO BID 12/19/13 [History] Sertraline [Zoloft] 150 mg PO DAILY 12/19/13 [History] Sucralfate [Carafate] 1 gm PO BID 12/19/13 [History] amLODIPine [Norvasc] 10 mg PO BEDTIME 12/19/13 [History] traZODone 100 mg PO BEDTIME PRN 12/19/13 [History] Cholecalciferol (Vitamin D3) [Vitamin D-3] 2,000 unit PO DAILY 12/20/14 [History] Hydrochlorothiazide 12.5 mg PO DAILY 12/20/14 [History] Isosorbide Mononitrate [Isosorbide Mononitrate ER] 2 tab PO DAILY 12/20/14 [History] Memantine HCl [Namenda] 10 mg PO BID 12/20/14 [History] Nitroglycerin [Nitrostat] 0.4 mg SL ASDIRECTED PRN 12/20/14 [History] Vitamin E 100 units PO DAILY 12/20/14 [History] atorvaSTATin Calcium [Atorvastatin Calcium] 80 mg PO QPM 12/20/14 [History] Albuterol/Ipratropium [DuoNeb 3.0-0.5 MG/3 ML] 3 ml INH QID PRN 03/01/19 [History] Benzonatate 200 mg PO Q8HR PRN 03/01/19 [History] Clopidogrel [Plavix] 75 mg PO DAILY 03/01/19 [History] Lidocaine 5% 1 applic TOP BID PRN 03/01/19 [History] Lidocaine 5% [Lidoderm 5%] 2 patch TOP DAILY PRN 03/01/19 [History] Loratadine [Claritin] 10 mg PO DAILY 03/01/19 [History] Melatonin/Pyridoxine HCl (B6) [Melatonin 3 mg Tablet] 3 mg PO BEDTIME PRN 03/01/19 [History] Pantoprazole Sodium [Protonix] 40 mg PO DAILY 03/01/19 [History] guaiFENesin/Codeine Phosphate [Codeine-Guaifen 10-100 mg/5 ml] 5 ml PO Q4HR PRN 03/01/19 [History] Past Medical History HEENT History: Reports: Cataract, Hard of Hearing, Other (See Below) Other HEENT History: left ear pain inside, hx cararact surgery Cardiovascular History: Reports: Angina, CAD, PTCA, Stents Respiratory History: Reports: Pulmonary Fibrosis Other Respiratory History: asbestos lungs - scraped/removed fluid Gastrointestinal History: Reports: Pancreatitis Genitourinary History: Reports: Prostate Disorder, Renal Calculus, Other (See Below) Other Genitourinary History: abnormal prostate lab need further appt. Musculoskeletal History: Reports: Back Pain, Chronic, Other (See Below) Other Musculoskeletal History: neck/back/knee/hip pain Psychiatric History: Reports: Depression Oncologic (Cancer) History: Reports: Prostate - Infectious Disease History Infectious Disease History: Reports: Chicken Pox, Measles, Mumps, Rubella, Other (See Below) Other Infectious Disease History: encephalitis - Past Surgical History HEENT Surgical History: Reports: Cataract Surgery Cardiovascular Surgical History: Reports: AAA Repair Other Cardiovascular Surgeries/Procedures: Triple bypass Respiratory Surgical History: Reports: None GI Surgical History: Reports: Hernia Repair/Other Other GI Surgeries/Procedures: hiatal Musculoskeletal Surgical History: Reports: Knee Replacement Other Oncologic Surgeries/Procedures: implanted chemo seeds Social & Family History - Family History Family Medical History: No Pertinent Family History Cardiac: Reports: CAD, [place] Endocrine/Metabolic: Reports: Diabetes, type II Oncologic: Reports: Lymphoma - Caffeine Use Caffeine Use: Reports: Coffee ED ROS ENT - Review of Systems Review Of Systems: See Below Constitutional: Reports: No Symptoms Respiratory: Reports: No Symptoms Cardiovascular: Reports: No Symptoms GI/Abdominal: Reports: No Symptoms : Reports: No Symptoms Musculoskeletal: Reports: No Symptoms Skin: Reports: No Symptoms ED EXAM, ENT - Physical Exam Exam: See Below Exam Limited By: No Limitations General Appearance: Alert, WD/WN, No Apparent Distress Eye Exam: Bilateral Eye: EOMI Mouth/Throat: Normal Inspection, Normal Oropharynx. No: Oral Ulcers, Pharyngeal Erythema, Tonsillar Exudates Head: Atraumatic Respiratory/Chest: No Respiratory Distress, Lungs Clear Cardiovascular: Normal Peripheral Pulses, Regular Rate, Rhythm GI/Abdominal: Normal Bowel Sounds Extremities: Normal Inspection Course - Vital Signs Last Recorded V/S: Last Vital Signs Temp 36.8 C 07/21/20 23:00 Pulse 78 07/21/20 23:00 Resp 16 07/21/20 23:00 BP 142/84 H 07/21/20 23:00 Pulse Ox 100 07/21/20 23:00 Departure - Departure Time of Disposition: 00:16 Disposition: Home, Self-Care 01 Condition: Good Clinical Impression: Candidal esophagitis - Discharge Information *PRESCRIPTION DRUG MONITORING PROGRAM REVIEWED*: Not Applicable *COPY OF PRESCRIPTION DRUG MONITORING REPORT IN PATIENT LAURA: Not Applicable Referrals: PCP,None [Primary Care Provider] - Forms: ED Department Discharge Additional Instructions: - take new medications as prescribed 5ml on day 1 and 2,, then 2.5ml on day 3-7. - follow up with your PCP early next week and discuss your current symptoms - continue rest of home meds as before Sepsis Event Note (ED) - Evaluation Sepsis Screening Result: No Definite Risk - Focused Exam Vital Signs: Vital Signs Temp Pulse Resp BP Pulse Ox 07/21/20 23:00 36.8 C 78 16 142/84 H 100 - Problem List & Annotations (1) Candidal esophagitis SNOMED Code(s): 40694561 Code(s): B37.81 - CANDIDAL ESOPHAGITIS Status: Acute Priority: Low Current Visit: Yes - Problem List Review Problem List Initiated/Reviewed/Updated: Yes - Assessment/Plan Plan: - will start patient on fluconazole PO liquid 200mg on day 1+2, then 100mg daily for 5 days - he has an appointment to see his PCP on Thursday ( in less than 48hrs )
== END 2020-07-22 00:24 | disposition home or self-care (01) ==
LOC: LB.ED 22:25
DX: B37.81 Candidal esophagitis (principal); I25.10 Atherosclerotic heart disease of native coronary artery without angina pectoris; Z79.82 Long term (current) use of aspirin; Z79.899 Other long term (current) drug therapy; Z95.5 Presence of coronary angioplasty implant and graft; Z88.2 Allergy status to sulfonamides; Z88.8 Allergy status to other drugs, medicaments and biological substances
CPT/HCPCS: 99283; A9270

== ENCOUNTER 2020-09-16 11:04 | Emergency (ER) | payer OTHER ==
[2020-09-16 11:07] VITALS: BP 108/61; PULSE 80
[2020-09-16] MEDS ORDERED: Ketorolac 60 MG/2 ML SDV IM ONE (11:23)
[2020-09-16] MEDS ORDERED: Ketorolac 30 MG/ML SDV IM ONE (11:28)
--- NOTE | 2020-09-16 11:36 | EDM.PDOC ---
ED HPI GENERAL MEDICAL PROBLEM - General Chief Complaint: Lower Extremity Injury/Pain Stated Complaint: FALL AT HOME Time Seen by Provider: 09/16/20 11:05 Source of Information: Reports: Patient History Limitations: Reports: No Limitations - History of Present Illness INITIAL COMMENTS - FREE TEXT/NARRATIVE: patient c/o left hip pain after a fall. He reports that he was trying to get out of the couch this morning and tripped by his blanket and landed on his left side 4-5 hrs ago. He needed some assistance to get up, was c/o slight left hip pain. Took some Tylenol, but still in pain, hurts worse when he tried to walk around - he used a Osborne and a walker most of the times. denies hear injury, no chest wall injury, no back injury. no numbness or tingling. On plavix. Onset: Sudden Duration: Hour(s): (5) Location: Reports: Lower Extremity, Left Quality: Reports: Sharp Severity: Moderate Improves with: Reports: Immobilization Worsens with: Reports: Movement - Related Data Allergies Allergy/AdvReac Type Severity Reaction Status Date / Time Sulfa (Sulfonamide Allergy Rash Verified 07/21/20 23:37 Antibiotics) zolpidem tartrate Allergy Change Verified 07/21/20 23:37 [From Melonieien] Mental Status Home Meds: Home Meds Aspirin [Thom Chewable Aspirin] 81 mg CHEW DAILY 12/19/13 [History] Metoprolol Succinate 25 mg PO DAILY 12/19/13 [History] Multivitamin [Multivitamins] 1 tab PO DAILY 12/19/13 [History] [place]-3 Fatty Acids [Fish Oil] 1,000 mg PO BID 12/19/13 [History] Sertraline [Zoloft] 150 mg PO DAILY 12/19/13 [History] Sucralfate [Carafate] 1 gm PO BID 12/19/13 [History] amLODIPine [Norvasc] 10 mg PO BEDTIME 12/19/13 [History] traZODone 100 mg PO BEDTIME PRN 12/19/13 [History] Cholecalciferol (Vitamin D3) [Vitamin D-3] 2,000 unit PO DAILY 12/20/14 [History] Hydrochlorothiazide 12.5 mg PO DAILY 12/20/14 [History] Isosorbide Mononitrate [Isosorbide Mononitrate ER] 2 tab PO DAILY 12/20/14 [History] Memantine HCl [Namenda] 10 mg PO BID 12/20/14 [History] Nitroglycerin [Nitrostat] 0.4 mg SL ASDIRECTED PRN 12/20/14 [History] Vitamin E 100 units PO DAILY 12/20/14 [History] atorvaSTATin Calcium [Atorvastatin Calcium] 80 mg PO QPM 12/20/14 [History] Albuterol/Ipratropium [DuoNeb 3.0-0.5 MG/3 ML] 3 ml INH QID PRN 03/01/19 [History] Clopidogrel [Plavix] 75 mg PO DAILY 03/01/19 [History] Lidocaine 5% 1 applic TOP BID PRN 03/01/19 [History] Lidocaine 5% [Lidoderm 5%] 2 patch TOP DAILY PRN 03/01/19 [History] Loratadine [Claritin] 10 mg PO DAILY 03/01/19 [History] Melatonin/Pyridoxine HCl (B6) [Melatonin 3 mg Tablet] 3 mg PO BEDTIME PRN 03/01/19 [History] Pantoprazole Sodium [Protonix] 40 mg PO DAILY 03/01/19 [History] guaiFENesin/Codeine Phosphate [Codeine-Guaifen 10-100 mg/5 ml] 5 ml PO Q4HR PRN 03/01/19 [History] Past Medical History HEENT History: Reports: Cataract, Hard of Hearing, Other (See Below) Other HEENT History: left ear pain inside, hx cararact surgery Cardiovascular History: Reports: Angina, CAD, PTCA, Stents Respiratory History: Reports: Pulmonary Fibrosis Other Respiratory History: asbestos lungs - scraped/removed fluid Gastrointestinal History: Reports: Pancreatitis Genitourinary History: Reports: Prostate Disorder, Renal Calculus, Other (See Below) Other Genitourinary History: abnormal prostate lab need further appt. Musculoskeletal History: Reports: Back Pain, Chronic, Other (See Below) Other Musculoskeletal History: neck/back/knee/hip pain Psychiatric History: Reports: Depression Oncologic (Cancer) History: Reports: Prostate - Infectious Disease History Infectious Disease History: Reports: Chicken Pox, Measles, Mumps, Rubella, Other (See Below) Other Infectious Disease History: encephalitis - Past Surgical History HEENT Surgical History: Reports: Cataract Surgery Cardiovascular Surgical History: Reports: AAA Repair Other Cardiovascular Surgeries/Procedures: Triple bypass Respiratory Surgical History: Reports: None GI Surgical History: Reports: Hernia Repair/Other Other GI Surgeries/Procedures: hiatal Musculoskeletal Surgical History: Reports: Knee Replacement Other Oncologic Surgeries/Procedures: implanted chemo seeds Social & Family History - Family History Family Medical History: No Pertinent Family History Cardiac: Reports: CAD, [place] Endocrine/Metabolic: Reports: Diabetes, type II Oncologic: Reports: Lymphoma - Tobacco Use Tobacco Use Status *Q: Former Tobacco User Used Tobacco, but Quit: Yes Month/Year Tobacco Last Used: 03/02/1979 - Caffeine Use Caffeine Use: Reports: Coffee Review of Systems - Review of Systems Review Of Systems: See Below Constitutional: Reports: No Symptoms Respiratory: Reports: No Symptoms Cardiovascular: Reports: No Symptoms GI/Abdominal: Reports: No Symptoms Skin: Reports: No Symptoms Neurological: Reports: No Symptoms ED EXAM, GENERAL - Physical Exam Exam: See Below Exam Limited By: No Limitations General Appearance: Alert, WD/WN, No Apparent Distress Eye Exam: Bilateral Eye: EOMI Head: Atraumatic Respiratory/Chest: No Respiratory Distress, Lungs Clear Cardiovascular: Normal Peripheral Pulses, Regular Rate, Rhythm, No Edema GI/Abdominal: Normal Bowel Sounds, Soft, Non-Tender Extremities: Limited Range of Motion (LLE) Neurological: Alert, Oriented, No Motor/Sensory Deficits Psychiatric: Normal Affect, Normal Mood Course - Vital Signs Last Recorded V/S: Last Vital Signs Temp 36.1 C 09/16/20 11:06 Pulse 80 09/16/20 11:06 Resp 16 09/16/20 11:06 BP 108/61 09/16/20 11:06 Pulse Ox 98 09/16/20 11:06 - Orders/Labs/Meds Orders: Active Orders 24 hr Category Date Time Status EKG Documentation Completion [RC] ASDIRECTED Care 09/16/20 13:29 Ordered Hip Min 2V or 3V Lt [CR] Stat Exams 09/16/20 11:22 Ordered B-TYPE NATRIURETIC PEPTIDE,BNP [CHEM] Stat Lab 09/16/20 13:28 Ordered BASIC METABOLIC PANEL,BMP [CHEM] Stat Lab 09/16/20 13:25 Ordered CBC W/O DIFF,HEMOGRAM [HEME] Stat Lab 09/16/20 13:25 Ordered CORONAVIRUS COVID-19 RAPID [MOLEC] Urgent Lab 09/16/20 13:15 Ordered TROPONIN I [CHEM] Stat Lab 09/16/20 13:28 Ordered Lactated Ringers @ 75 MLS/HR(1000ml) Med 09/16/20 13:30 Ordered Lactated Ringers [Ringers, Lactated] 1,000 ml IV ASDIRECTED EKG 12 Lead [EK] Routine Ther 09/16/20 13:28 Ordered Medication Orders Lactated Ringer's (Ringers, Lactated) 1,000 mls @ 75 mls/hr IV ASDIRECTED CAROLYNN Meds: Medications Generic Name Dose Route Start Last Admin Trade Name Freq PRN Reason Stop Dose Admin Lactated Ringer's 1,000 mls @ 75 mls/hr 09/16/20 13:30 Ringers, Lactated IV ASDIRECTED CAROLYNN Discontinued Medications Generic Name Dose Route Start Last Admin Trade Name Freq PRN Reason Stop Dose Admin Ketorolac Tromethamine 30 mg 09/16/20 11:23 Ketorolac 60 Mg/2 Ml Sdv IM 09/16/20 11:24 ONETIME ONE Ketorolac Tromethamine 30 mg 09/16/20 11:28 09/16/20 11:25 Ketorolac 30 Mg/Ml Sdv IM 09/16/20 11:29 30 mg ONETIME ONE Administration - Re-Assessments/Exams Free Text/Narrative Re-Assessment/Exam: Xrays left hip - non-displaced, non-comminuted left inter-trochanteric fracture. vitals WNL pain was controlled with IM Toradol called ortho Surgery for a consultation. 09/16/20 13:31 xrays were reviewed and was accepted for a transfer for surgical fixation. labs and EKG were ordered IVF was started Transport by EMS Departure - Departure Time of Disposition: 13:43 Disposition: DC/Tfer to Acute Hospital 02 Condition: Good Clinical Impression: Intertrochanteric fracture, hip Closed left hip fracture Qualifiers: Encounter type: initial encounter Qualified Code(s): S72.002A - Fracture of unspecified part of neck of left femur, initial encounter for closed fracture - Discharge Information *PRESCRIPTION DRUG MONITORING PROGRAM REVIEWED*: Not Applicable *COPY OF PRESCRIPTION DRUG MONITORING REPORT IN PATIENT LAURA: Not Applicable Referrals: PCP,None [Primary Care Provider] - Forms: ED Department Discharge Sepsis Event Note (ED) - Evaluation Sepsis Screening Result: No Definite Risk - Focused Exam Vital Signs: Vital Signs Temp Pulse Resp BP Pulse Ox 09/16/20 11:06 36.1 C 80 16 108/61 98 - Problem List & Annotations (1) Closed left hip fracture SNOMED Code(s): 439930798 Code(s): S72.002A - FRACTURE OF UNSP PART OF NECK OF LEFT FEMUR, INIT Status: Acute Priority: Low Current Visit: Yes Qualifiers: Encounter type: initial encounter Qualified Code(s): S72.002A - Fracture of unspecified part of neck of left femur, initial encounter for closed fracture (2) Intertrochanteric fracture, hip SNOMED Code(s): 616297016 Code(s): S72.143A - DISPLACED INTERTROCHANTERIC FRACTURE OF UNSP FEMUR, INIT Status: Acute Priority: Low Current Visit: Yes - Problem List Review Problem List Initiated/Reviewed/Updated: Yes - My Orders Last 24 Hours: My Active Orders 09/16/20 11:22 Hip Min 2V or 3V Lt [CR] Stat 09/16/20 13:15 CORONAVIRUS COVID-19 RAPID [MOLEC] Urgent 09/16/20 13:25 BASIC METABOLIC PANEL,BMP [CHEM] Stat CBC W/O DIFF,HEMOGRAM [HEME] Stat 09/16/20 13:28 B-TYPE NATRIURETIC PEPTIDE,BNP [CHEM] Stat TROPONIN I [CHEM] Stat EKG 12 Lead [EK] Routine 09/16/20 13:29 EKG Documentation Completion [RC] ASDIRECTED 09/16/20 13:30 Lactated Ringers @ 75 MLS/HR(1000ml) Lactated Ringers [Ringers, Lactated] 1,000 ml IV ASDIRECTED - Assessment/Plan Last 24 Hours: My Active Orders 09/16/20 11:22 Hip Min 2V or 3V Lt [CR] Stat 09/16/20 13:15 CORONAVIRUS COVID-19 RAPID [MOLEC] Urgent 09/16/20 13:25 BASIC METABOLIC PANEL,BMP [CHEM] Stat CBC W/O DIFF,HEMOGRAM [HEME] Stat 09/16/20 13:28 B-TYPE NATRIURETIC PEPTIDE,BNP [CHEM] Stat TROPONIN I [CHEM] Stat EKG 12 Lead [EK] Routine 09/16/20 13:29 EKG Documentation Completion [RC] ASDIRECTED 09/16/20 13:30 Lactated Ringers @ 75 MLS/HR(1000ml) Lactated Ringers [Ringers, Lactated] 1,000 ml IV ASDIRECTED Plan: - NPO - IVF - Pain control - transfer to a higher level of care for surgical fixation
[2020-09-16] MEDS ORDERED: Lactated Ringers 1,000 ML IV SCH (13:30)
[2020-09-16] MEDS: Morphine 2 MG/ML SYRINGE IVPUSH PRN ×2 (14:41→15:38)
[2020-09-16] MEDS ORDERED: Morphine 4 MG/ML VIAL ONE (14:42)
[2020-09-16] MEDS ORDERED: LORazepam 2 MG/ML SDV IVPUSH ONE (15:44)
[2020-09-16] MEDS ORDERED: LORazepam 2 MG/ML SDV ONE (15:54)
--- NOTE | 2020-09-17 08:37 | CR ---
Date of Service: 09/16/20 Clinical Data: fall - left hip pain LEFT HIP: There is a mildly impacted fracture through the neck of the femur. 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 There are vascular calcifications in the soft tissues. IMPRESSION: Left hip fracture. [id number] [facility]
== END 2020-09-16 15:54 ==
LOC: LB.ED 11:04
DX: S72.145A Nondisplaced intertrochanteric fracture of left femur, initial encounter for closed fracture (principal); I25.119 Atherosclerotic heart disease of native coronary artery with unspecified angina pectoris; Z87.891 Personal history of nicotine dependence; Z88.2 Allergy status to sulfonamides; Z88.8 Allergy status to other drugs, medicaments and biological substances; Z79.82 Long term (current) use of aspirin; Z79.02 Long term (current) use of antithrombotics/antiplatelets; Z79.899 Other long term (current) drug therapy; W08.XXXA Fall from other furniture, initial encounter; Y92.009 Unspecified place in unspecified non-institutional (private) residence as the place of occurrence of the external cause
CPT/HCPCS: 36415; 51702; 73502; 80048; 83880; 84484; 85027; 87635; 93005; 96372; 96374; 96375; 99285; J1885; J2060; J2270; J7120; U0002

== ENCOUNTER 2020-10-08 20:04 | Emergency (ER) | payer MEDICARE ==
--- NOTE | 2020-10-08 20:47 | EDM.PDOC ---
ED HPI GENERAL MEDICAL PROBLEM - General Chief Complaint: Lower Extremity Injury/Pain Stated Complaint: HIP PAIN Time Seen by Provider: 10/08/20 20:05 Source of Information: Reports: Family - History of Present Illness INITIAL COMMENTS - FREE TEXT/NARRATIVE: Patient is here with family member who tells me that he went to [place] today for recheck involving left hip surgery. He had x-rays taken which were okay, and sutures were removed. He had fallen on September 16 and fractured his hip. The patient's been doing okay until the trip today after which his pain kept increasing. He rated his pain at 6/10 when he was in [place], and it got worse on the way home. They have been applying ice and heat but it is not helping much. He has been taking Lortabs 5/325 1 tablet every 6 hours but states it onl y seems to help for an hour or so. He also has a couple of Lidoderm patches on the same area with minimal relief. - Related Data Allergies Allergy/AdvReac Type Severity Reaction Status Date / Time Oirgejw-Hvk-Brf Reductase Allergy Weakness Verified 10/08/20 20:37 Inhibitor Sulfa (Sulfonamide Allergy Rash Verified 07/21/20 23:37 Antibiotics) zolpidem tartrate Allergy Change Verified 07/21/20 23:37 [From Haritha] Mental Status Home Meds: Home Meds Aspirin [Thom Chewable Aspirin] 81 mg CHEW DAILY 12/19/13 [History] Metoprolol Succinate 25 mg PO DAILY 12/19/13 [History] Multivitamin [Multivitamins] 1 tab PO DAILY 12/19/13 [History] [place]-3 Fatty Acids [Fish Oil] 1,000 mg PO BID 12/19/13 [History] Sertraline [Zoloft] 150 mg PO DAILY 12/19/13 [History] Sucralfate [Carafate] 1 gm PO BID 12/19/13 [History] amLODIPine [Norvasc] 10 mg PO BEDTIME 12/19/13 [History] traZODone 100 mg PO BEDTIME PRN 12/19/13 [History] Cholecalciferol (Vitamin D3) [Vitamin D-3] 2,000 unit PO DAILY 12/20/14 [History] Hydrochlorothiazide 12.5 mg PO DAILY 12/20/14 [History] Isosorbide Mononitrate [Isosorbide Mononitrate ER] 2 tab PO DAILY 12/20/14 [History] Memantine HCl [Namenda] 10 mg PO BID 12/20/14 [History] Nitroglycerin [Nitrostat] 0.4 mg SL ASDIRECTED PRN 12/20/14 [History] Vitamin E 100 units PO DAILY 12/20/14 [History] atorvaSTATin Calcium [Atorvastatin Calcium] 80 mg PO QPM 12/20/14 [History] Albuterol/Ipratropium [DuoNeb 3.0-0.5 MG/3 ML] 3 ml INH QID PRN 03/01/19 [History] Clopidogrel [Plavix] 75 mg PO DAILY 03/01/19 [History] Lidocaine 5% 1 applic TOP BID PRN 03/01/19 [History] Lidocaine 5% [Lidoderm 5%] 2 patch TOP DAILY PRN 03/01/19 [History] Loratadine [Claritin] 10 mg PO DAILY 03/01/19 [History] Melatonin/Pyridoxine HCl (B6) [Melatonin 3 mg Tablet] 3 mg PO BEDTIME PRN 03/01/19 [History] Pantoprazole Sodium [Protonix] 40 mg PO DAILY 03/01/19 [History] guaiFENesin/Codeine Phosphate [Codeine-Guaifen 10-100 mg/5 ml] 5 ml PO Q4HR PRN 03/01/19 [History] Past Medical History HEENT History: Reports: Cataract, Hard of Hearing, Other (See Below) Other HEENT History: left ear pain inside, hx cararact surgery Cardiovascular History: Reports: Angina, CAD, PTCA, Stents Respiratory History: Reports: Pulmonary Fibrosis Other Respiratory History: asbestos lungs - scraped/removed fluid Gastrointestinal History: Reports: Pancreatitis Genitourinary History: Reports: Prostate Disorder, Renal Calculus, Other (See Below) Other Genitourinary History: abnormal prostate lab need further appt. Musculoskeletal History: Reports: Back Pain, Chronic, Other (See Below) Other Musculoskeletal History: neck/back/knee/hip pain Psychiatric History: Reports: Depression Oncologic (Cancer) History: Reports: Prostate - Infectious Disease History Infectious Disease History: Reports: Chicken Pox, Measles, Mumps, Rubella, Other (See Below) Other Infectious Disease History: encephalitis - Past Surgical History HEENT Surgical History: Reports: Cataract Surgery Cardiovascular Surgical History: Reports: AAA Repair Other Cardiovascular Surgeries/Procedures: Triple bypass Respiratory Surgical History: Reports: None GI Surgical History: Reports: Hernia Repair/Other Other GI Surgeries/Procedures: hiatal Musculoskeletal Surgical History: Reports: Knee Replacement, ORIF Other Musculoskeletal Surgeries/Procedures:: Left hip ORIF 2020 Other Oncologic Surgeries/Procedures: implanted chemo seeds Social & Family History - Family History Family Medical History: No Pertinent Family History Cardiac: Reports: CAD, [place] Endocrine/Metabolic: Reports: Diabetes, type II Oncologic: Reports: Lymphoma - Caffeine Use Caffeine Use: Reports: Coffee Review of Systems - Review of Systems Review Of Systems: Comprehensive ROS is negative, except as noted in HPI. Musculoskeletal: Reports: Other (Left hip pain.) ED EXAM, GENERAL - Physical Exam Exam: See Below Free Text/Narrative:: Patient is awake and alert he is uncomfortable from the pain. Examining the left hip reveals Steri-Strips have been placed across an incision on the lateral side of the hip. There is no weeping or drainage, and no sign of swelling or redness. He does have 2 Lidoderm patches on without any obvious irritation. Skin is warm and dry. The patient does not want to move his leg or hip at this time due to significant pain, and he is obviously uncomfortable due to pain. Course - Orders/Labs/Meds Orders: Dilaudid 1 mg was given subcu. - Re-Assessments/Exams Free Text/Narrative Re-Assessment/Exam: 10/08/20 20:46 Patient was monitored for about 20 minutes, after which he states he is starting to feel better. He no longer appears to be uncomfortable. He tells me he is ready to go home. He will go home with his family member who I believe is his daughter. They will increase the Lortabs to one half tab in between his usual dose that is 1 tablet every 6 hours. I will instruct him not to use any anti- inflammatory medications. He is on blood thinners Plavix and Lovenox. They can use heat alternating with ice through the night as needed and into tomorrow. He is to rest and slowly increase activity over the next day or so as tolerated. Departure - Departure Time of Disposition: 20:40 Disposition: Home, Self-Care 01 Condition: Good Clinical Impression: Acute postoperative pain of hip Qualifiers: Laterality: left Qualified Code(s): G89.18 - Other acute postprocedural pain; M25.552 - Pain in left hip - Discharge Information *PRESCRIPTION DRUG MONITORING PROGRAM REVIEWED*: Not Applicable *COPY OF PRESCRIPTION DRUG MONITORING REPORT IN PATIENT LAURA: Not Applicable Additional Instructions: Increase Lortab usage to 1/2 tablet in between the usual 1 tablet every 6 hours as needed. Rest and use ice alternating with heat to the affected area regu larly over the next day or so and then as needed. Activity should be minimal slowly improving as his condition should improve over the next day or 2. Follow-up is as needed.
[2020-10-08 23:55] VITALS: BP 122/69; PULSE 96
== END 2020-10-08 20:54 | disposition home or self-care (01) ==
LOC: LB.ED 20:04
DX: G89.18 Other acute postprocedural pain (principal); M25.552 Pain in left hip; Z88.8 Allergy status to other drugs, medicaments and biological substances; Z88.2 Allergy status to sulfonamides; Z79.82 Long term (current) use of aspirin; Z79.01 Long term (current) use of anticoagulants; Z79.899 Other long term (current) drug therapy; Z96.643 Presence of artificial hip joint, bilateral
CPT/HCPCS: 99283

== ENCOUNTER 2020-11-02 12:31 | Emergency (ER) | payer MEDICARE, OTHER ==
[2020-11-02] MEDS ORDERED: Morphine 4 MG/ML VIAL ONE (12:55)
[2020-11-02] MEDS ORDERED: Morphine 2 MG/ML SYRINGE IM ONE (13:06)
[2020-11-02 13:18] VITALS: BP 158/83; PULSE 71
--- NOTE | 2020-11-02 14:07 | EDM.PDOC ---
ED HPI GENERAL MEDICAL PROBLEM - General Chief Complaint: Abdominal Pain Stated Complaint: HERNIA Time Seen by Provider: 11/02/20 12:35 - History of Present Illness INITIAL COMMENTS - FREE TEXT/NARRATIVE: This patient presents to the emergency department with right groin pain. He has a femoral hernia which is longstanding and has not caused him any problems. He says it periodically does pop out and he is able to reduce it. Today it has been out and has become hard, quite painful, and he has been unable to reduce it. Is also complaining of some nausea but has not had any vomiting. He denies other concerns or complaints. Onset: Today Right Groin Pain Score (Numeric/FACES): 8 - Related Data Allergies Allergy/AdvReac Type Severity Reaction Status Date / Time [id number] Reductase Allergy Weakness Verified 11/02/20 13:22 Inhibitor Sulfa (Sulfonamide Allergy Rash Verified 11/02/20 13:22 Antibiotics) zolpidem tartrate Allergy Change Verified 11/02/20 13:22 [From Haritha] Mental Status Home Meds: Home Meds Aspirin [Thom Chewable Aspirin] 81 mg CHEW DAILY 12/19/13 [History] Metoprolol Succinate 25 mg PO DAILY 12/19/13 [History] Multivitamin [Multivitamins] 1 tab PO DAILY 12/19/13 [History] [place]-3 Fatty Acids [Fish Oil] 1,000 mg PO BID 12/19/13 [History] Sertraline [Zoloft] 150 mg PO DAILY 12/19/13 [History] Sucralfate [Carafate] 1 gm PO BID 12/19/13 [History] amLODIPine [Norvasc] 10 mg PO BEDTIME 12/19/13 [History] traZODone 100 mg PO BEDTIME PRN 12/19/13 [History] Cholecalciferol (Vitamin D3) [Vitamin D-3] 2,000 unit PO DAILY 12/20/14 [History] Hydrochlorothiazide 12.5 mg PO DAILY 12/20/14 [History] Isosorbide Mononitrate [Isosorbide Mononitrate ER] 2 tab PO DAILY 12/20/14 [History] Memantine HCl [Namenda] 10 mg PO BID 12/20/14 [History] Nitroglycerin [Nitrostat] 0.4 mg SL ASDIRECTED PRN 12/20/14 [History] Vitamin E 100 units PO DAILY 12/20/14 [History] atorvaSTATin Calcium [Atorvastatin Calcium] 80 mg PO QPM 12/20/14 [History] Albuterol/Ipratropium [DuoNeb 3.0-0.5 MG/3 ML] 3 ml INH QID PRN 03/01/19 [History] Clopidogrel [Plavix] 75 mg PO DAILY 03/01/19 [History] Lidocaine 5% 1 applic TOP BID PRN 03/01/19 [History] Lidocaine 5% [Lidoderm 5%] 2 patch TOP DAILY PRN 03/01/19 [History] Loratadine [Claritin] 10 mg PO DAILY 03/01/19 [History] Melatonin/Pyridoxine HCl (B6) [Melatonin 3 mg Tablet] 3 mg PO BEDTIME PRN 03/01/19 [History] Pantoprazole Sodium [Protonix] 40 mg PO DAILY 03/01/19 [History] guaiFENesin/Codeine Phosphate [Codeine-Guaifen 10-100 mg/5 ml] 5 ml PO Q4HR PRN 03/01/19 [History] Past Medical History HEENT History: Reports: Cataract, Hard of Hearing, Other (See Below) Other HEENT History: left ear pain inside, hx cararact surgery Cardiovascular History: Reports: Angina, CAD, PTCA, Stents Respiratory History: Reports: Pulmonary Fibrosis Other Respiratory History: asbestos lungs - scraped/removed fluid Gastrointestinal History: Reports: Pancreatitis Genitourinary History: Reports: Prostate Disorder, Renal Calculus, Other (See Below) Other Genitourinary History: abnormal prostate lab need further appt. Musculoskeletal History: Reports: Back Pain, Chronic, Other (See Below) Other Musculoskeletal History: neck/back/knee/hip pain. Reports sx to L hip 09/17/20 "Pins in hip" Psychiatric History: Reports: Depression Oncologic (Cancer) History: Reports: Prostate - Infectious Disease History Infectious Disease History: Reports: Chicken Pox, Measles, Mumps, Rubella, Other (See Below) Other Infectious Disease History: encephalitis - Past Surgical History HEENT Surgical History: Reports: Cataract Surgery Cardiovascular Surgical History: Reports: AAA Repair Other Cardiovascular Surgeries/Procedures: Triple bypass Respiratory Surgical History: Reports: None GI Surgical History: Reports: Hernia Repair/Other Other GI Surgeries/Procedures: hiatal Musculoskeletal Surgical History: Reports: Knee Replacement, ORIF Other Musculoskeletal Surgeries/Procedures:: Left hip ORIF 2020 Other Oncologic Surgeries/Procedures: implanted chemo seeds Social & Family History - Family History Family Medical History: No Pertinent Family History Cardiac: Reports: CAD, ID Endocrine/Metabolic: Reports: Diabetes, type II Oncologic: Reports: Lymphoma - Tobacco Use Tobacco Use Status *Q: Former Tobacco User Used Tobacco, but Quit: Yes Month/Year Tobacco Last Used: 1979 - Caffeine Use Caffeine Use: Reports: Coffee - Recreational Drug Use Recreational Drug Use: No ED ROS GENERAL - Review of Systems Review Of Systems: See Below Constitutional: Reports: No Symptoms HEENT: Reports: No Symptoms Respiratory: Reports: No Symptoms Cardiovascular: Reports: No Symptoms GI/Abdominal: Reports: Abdominal Pain, Nausea. Denies: Diarrhea, Vomiting : Reports: No Symptoms Musculoskeletal: Reports: No Symptoms Skin: Reports: No Symptoms Neurological: Reports: No Symptoms ED EXAM, RENAL/ - Physical Exam Exam: See Below Exam Limited By: No Limitations General Appearance: Alert, Moderate Distress (Related to pain) Eye Exam: Bilateral Eye: Normal Inspection, PERRL Ears: Normal External Exam Nose: Normal Inspection Throat/Mouth: Normal Inspection Head: Atraumatic, Normocephalic Respiratory/Chest: No Respiratory Distress, Normal Breath Sounds Cardiovascular: Regular Rate, Rhythm GI/Abdominal: Normal Bowel Sounds, Soft, Non-Tender, Hernia (Right femoral mass firm and quite tender with palpation.) Course - Vital Signs Last Recorded V/S: Last Vital Signs Temp 36.2 C 11/02/20 12:35 Pulse 71 11/02/20 12:35 Resp 20 11/02/20 12:35 BP 158/83 H 11/02/20 12:35 Pulse Ox 95 11/02/20 12:53 - Orders/Labs/Meds Meds: Medications Discontinued Medications Generic Name Dose Route Start Last Admin Trade Name Freq PRN Reason Stop Dose Admin Morphine Sulfate Confirm 11/02/20 12:55 11/02/20 13:06 Morphine 4 Mg/Ml Vial Administered 11/02/20 12:56 Not Given Dose 4 mg .ROUTE .STK-MED ONE Morphine Sulfate 4 mg 11/02/20 13:06 11/02/20 12:45 Morphine 2 Mg/Ml Syringe IM 11/02/20 13:07 4 mg ONETIME ONE Administration - Re-Assessments/Exams Free Text/Narrative Re-Assessment/Exam: 11/02/20 14:05 This patient presented to the ER with an incarcerated hernia. He was given morphine for pain and ice was placed to the area. This did allow the hernia to be reduced and his pain was completely alleviated. I did consult with Dr. Ott, surgeon from [place] who recommended attempting a reduction with medication for conscious sedation if this could not be easily managed here; however, this was not necessary to do. Patient was given some Percocet for home use, instructions were provided to avoid increasing intra-abdominal pressure, resting and applying ice to the area as needed. He will follow-up with his primary care provider for surgery referral to [facility]. The patient was stable and quite comfortable when he was discharged. Departure - Departure Time of Disposition: 14:00 Disposition: Home, Self-Care 01 Condition: Good Clinical Impression: Hernia - Discharge Information *PRESCRIPTION DRUG MONITORING PROGRAM REVIEWED*: Not Applicable *COPY OF PRESCRIPTION DRUG MONITORING REPORT IN PATIENT LAURA: Not Applicable Referrals: PCP,None [Primary Care Provider] - Sepsis Event Note (ED) - Focused Exam Vital Signs: Vital Signs Temp Pulse Resp BP Pulse Ox 11/02/20 12:53 95 11/02/20 12:35 36.2 C 71 20 158/83 H 95
== END 2020-11-02 14:10 | disposition home or self-care (01) ==
LOC: LB.ED 12:31
DX: K41.30 Unilateral femoral hernia, with obstruction, without gangrene, not specified as recurrent (principal); I25.119 Atherosclerotic heart disease of native coronary artery with unspecified angina pectoris; Z95.5 Presence of coronary angioplasty implant and graft; Z88.2 Allergy status to sulfonamides; Z88.8 Allergy status to other drugs, medicaments and biological substances; Z79.82 Long term (current) use of aspirin; Z79.899 Other long term (current) drug therapy; Z87.891 Personal history of nicotine dependence
CPT/HCPCS: 96372; 99283; J2270

== ENCOUNTER 2021-05-29 10:47 | Emergency (ER) | payer MEDICARE ==
[2021-05-29] MEDS ORDERED: Sodium Chloride 0.9% 1,000 ML IV ONE (10:57)
[2021-05-29 11:15] VITALS: BP 114/68; PULSE 76
== END 2021-05-29 12:28 | disposition home or self-care (01) ==
LOC: LB.ED 10:47
DX: K52.9 Noninfective gastroenteritis and colitis, unspecified (principal); I25.119 Atherosclerotic heart disease of native coronary artery with unspecified angina pectoris; Z88.2 Allergy status to sulfonamides; Z88.8 Allergy status to other drugs, medicaments and biological substances; Z79.82 Long term (current) use of aspirin; Z79.899 Other long term (current) drug therapy
CPT/HCPCS: 36415; 74019; 80053; 85025; 99285; J7030; 99282

== ENCOUNTER 2022-03-27 13:33 | Inpatient (IN) | payer OTHER ==
[2022-03-27] MEDS ORDERED: Aspirin 81 MG Tab.Chew PO ONE (14:25)
[2022-03-27] MEDS ORDERED: Sodium Chloride 0.9% 10 ML Syringe FLUSH PRN (14:25)
[2022-03-27] MEDS ORDERED: Sodium Chloride 0.9% 1,000 ML IV SCH (14:30)
[2022-03-27 14:51] LABS: TROPONIN I HIGH SENSITIVITY 18.5 pg/ml (<=60.4)
[2022-03-27] MEDS ORDERED: Albuterol/Ipratropium 3.0-0.5 MG/3 ML Neb Soln NEB STA (14:51)
[2022-03-27] MEDS ORDERED: Potassium Phosphates 3 mMole/ML 15 ML SDV IV STA (14:54)
[2022-03-27] MEDS ORDERED: Potassium Phosphates 45 MMOLE in Sodium Chloride 0.9% 500 ML IV ONE (15:00)
[2022-03-27] MEDS ORDERED: Potassium Phosphates 45 MMOLE in Sodium Chloride 0.9% 250 ML IV ONE (15:02)
[2022-03-27] MEDS ORDERED: Albuterol/Ipratropium 3.0-0.5 MG/3 ML Neb Soln ONE (15:25)
[2022-03-27] MEDS ORDERED: Sodium Chloride 0.9% 50 ML SDV FLUSH ONE (15:51)
[2022-03-27] MEDS ORDERED: Iopamidol 755 Mg/ML 100 ML Bottle IV SCH (16:00)
[2022-03-27] MEDS ORDERED: Furosemide 20 MG/2 ML VIAL IVPUSH ONE (17:19)
[2022-03-27] MEDS ORDERED: Furosemide 40 MG/4 ML VIAL ONE (17:33)
[2022-03-27] MEDS ORDERED: Amiodarone 150 MG in Dextrose 5% in Water 100 ML IV SCH ×2 (18:00)
[2022-03-27] MEDS ORDERED: Amiodarone 450 MG/9 ML SDV IV ONE (18:37)
[2022-03-27] MEDS: Heparin Sodium/D5W 25,000 UNITS/500 ML BAG IV SCH (19:20)
[2022-03-27] MEDS: Acetaminophen/Codeine 300-30 MG Tab PO PRN (21:07)
[2022-03-28] MEDS: Acetaminophen/Codeine 300-30 MG Tab PO PRN ×2 (05:58→23:14)
[2022-03-28] MEDS ORDERED: Pantoprazole 40 MG Tab.CR PO PRN (11:04)
[2022-03-28] MEDS ORDERED: Isosorbide Mononitrate 30 MG Tab.ER PO SCH (11:15)
[2022-03-28] MEDS: Metoprolol Succinate 25 MG Tab.ER PO SCH (11:56)
[2022-03-28] MEDS: Isosorbide Mononitrate 60 MG Tab.ER PO SCH (11:56)
[2022-03-28] MEDS: Clopidogrel 75 MG Tab PO SCH (11:56)
[2022-03-28] MEDS: Finasteride 5 MG Tab PO SCH (11:56)
[2022-03-28] MEDS: Lidocaine 5% 700 MG Patch TOP PRN (11:58)
[2022-03-28] MEDS: Insulin Aspart 100 Units/ML 3 ML Pen SUBCUT SCH ×2 (12:04→18:30)
[2022-03-28] MEDS: Heparin Sodium/D5W 25,000 UNITS/500 ML BAG IV SCH (13:56)
[2022-03-28] MEDS ORDERED: Acetaminophen 325 MG Tab PO ONE (14:00)
[2022-03-28] MEDS ORDERED: Calcium Carbonate 500 MG Tab.Chew PO ONE (14:01)
[2022-03-28] MEDS: Amiodarone 200 MG Tab PO SCH ×2 (14:12→20:31)
[2022-03-28] MEDS: Apixaban 5 MG Tab PO SCH ×2 (15:02→20:32)
[2022-03-28] MEDS ORDERED: Codeine/guaiFENesin 10-100 MG/5 ML Syrup 5 ML Cup PO SCH (17:00)
[2022-03-28] MEDS: guaiFENesin/Dextromethorphan 100-10 MG/5 ML Soln 10 ML Cup PO SCH (18:40)
[2022-03-28] MEDS: Memantine 10 MG Tab PO SCH (20:30)
[2022-03-28] MEDS: amLODIPine 10 MG Tab PO SCH (20:31)
[2022-03-28] MEDS: traZODone 100 MG Tab PO SCH (20:32)
[2022-03-28] MEDS: atorvaSTATin 80 MG Tab PO SCH (20:32)
[2022-03-29] MEDS: guaiFENesin/Dextromethorphan 100-10 MG/5 ML Soln 10 ML Cup PO SCH ×6 (00:49→18:21)
[2022-03-29] MEDS ORDERED: Cetirizine 10 MG Tab PO PRN (08:00)
[2022-03-29] MEDS: Finasteride 5 MG Tab PO SCH (08:15)
[2022-03-29] MEDS: Hydrochlorothiazide 25 MG Tab PO SCH (08:17)
[2022-03-29] MEDS: Amiodarone 200 MG Tab PO SCH ×2 (08:19→19:53)
[2022-03-29] MEDS: Memantine 10 MG Tab PO SCH ×2 (08:20→19:41)
[2022-03-29] MEDS: Metoprolol Succinate 25 MG Tab.ER PO SCH (08:20)
[2022-03-29] MEDS: Clopidogrel 75 MG Tab PO SCH (08:20)
[2022-03-29] MEDS: Gabapentin 100 MG Cap PO SCH (08:20)
[2022-03-29] MEDS: Isosorbide Mononitrate 60 MG Tab.ER PO SCH (08:21)
[2022-03-29] MEDS: Apixaban 5 MG Tab PO SCH ×2 (08:21→19:42)
[2022-03-29] MEDS: Insulin Aspart 100 Units/ML 3 ML Pen SUBCUT SCH ×3 (08:22→17:30)
[2022-03-29] MEDS ORDERED: Diazepam 5 MG Tab PO ONE (09:30)
[2022-03-29] MEDS ORDERED: Diazepam 5 MG Tab ONE (09:41)
[2022-03-29] MEDS ORDERED: Pantoprazole 40 MG Vial IVPUSH ONE (13:24)
[2022-03-29] MEDS: Acetaminophen/Codeine 300-30 MG Tab PO PRN (13:31)
[2022-03-29] MEDS: atorvaSTATin 80 MG Tab PO SCH (19:00)
[2022-03-29] MEDS ORDERED: Diazepam 10 MG Tab PO PRN (19:19)
[2022-03-29] MEDS: traZODone 100 MG Tab PO SCH (19:39)
[2022-03-29] MEDS: Acetaminophen/Codeine 300-30 MG Tab PO SCH (19:41)
[2022-03-29] MEDS: amLODIPine 10 MG Tab PO SCH (19:41)
[2022-03-29] MEDS ORDERED: Amiodarone 200 MG Tab ONE (19:50)
[2022-03-30] MEDS: guaiFENesin/Dextromethorphan 100-10 MG/5 ML Soln 10 ML Cup PO SCH ×2 (01:02→08:04)
[2022-03-30] MEDS: Acetaminophen/Codeine 300-30 MG Tab PO SCH ×2 (01:03→08:05)
[2022-03-30] MEDS ORDERED: Amiodarone 200 MG Tab PO ONE (02:15)
[2022-03-30] MEDS ORDERED: Amiodarone 200 MG Tab ONE (02:24)
[2022-03-30] MEDS: Hydrochlorothiazide 25 MG Tab PO SCH (08:04)
[2022-03-30] MEDS: Memantine 10 MG Tab PO SCH (08:04)
[2022-03-30] MEDS: Metoprolol Succinate 25 MG Tab.ER PO SCH (08:04)
[2022-03-30] MEDS: Clopidogrel 75 MG Tab PO SCH (08:05)
[2022-03-30] MEDS: Finasteride 5 MG Tab PO SCH (08:05)
[2022-03-30] MEDS: Isosorbide Mononitrate 60 MG Tab.ER PO SCH (08:05)
[2022-03-30] MEDS: Apixaban 5 MG Tab PO SCH (08:05)
[2022-03-30] MEDS: Gabapentin 100 MG Cap PO SCH (08:05)
[2022-03-30] MEDS: Amiodarone 200 MG Tab PO SCH (08:06)
[2022-03-30] MEDS: Insulin Aspart 100 Units/ML 3 ML Pen SUBCUT SCH (08:06)
[2022-03-30 08:08] VITALS: BP 117/81; PULSE 90
[2022-03-30] MEDS: Lidocaine 5% 700 MG Patch TOP PRN (09:40)
[2022-03-30] MEDS ORDERED: Apixaban 5 MG Tab ONE (12:00)
== END 2022-03-30 12:00 | disposition home or self-care (01) | DRG 308 ==
LOC: LB.ED 13:33 → LB.MS 03-28 10:19
PROVIDERS: ADMIT Surgery; ATTEND Surgery
DX: I48.92 Unspecified atrial flutter (principal); I26.99 Other pulmonary embolism without acute cor pulmonale; J98.4 Other disorders of lung; R09.02 Hypoxemia; Z99.81 Dependence on supplemental oxygen; H91.90 Unspecified hearing loss, unspecified ear; E86.0 Dehydration; E83.39 Other disorders of phosphorus metabolism; J61 Pneumoconiosis due to asbestos and other mineral fibers; Z20.822 Contact with and (suspected) exposure to COVID-19; F41.9 Anxiety disorder, unspecified; F32.A Depression, unspecified; E11.9 Type 2 diabetes mellitus without complications; Z87.891 Personal history of nicotine dependence; Z96.659 Presence of unspecified artificial knee joint; I11.0 Hypertensive heart disease with heart failure; I50.9 Heart failure, unspecified; Z88.2 Allergy status to sulfonamides; I25.10 Atherosclerotic heart disease of native coronary artery without angina pectoris; K21.9 Gastro-esophageal reflux disease without esophagitis; Z79.01 Long term (current) use of anticoagulants; Z79.82 Long term (current) use of aspirin; Z79.84 Long term (current) use of oral hypoglycemic drugs; Z79.899 Other long term (current) drug therapy; Z95.5 Presence of coronary angioplasty implant and graft; Z95.1 Presence of aortocoronary bypass graft
CPT/HCPCS: 36415; 71045; 71260; 80048; 82947; 83735; 83880; 84100; 84484; 85027; 85379; 85610; 85730; 93005; 93010; 99285; A9270-GY; C9113; J0282; J1644; J1815-GY; J1940; J3490; J7030; J7050; J7620; Q9967; U0002